=== PATIENT | male | born 1975 | race Caucasian/White ===

== ENCOUNTER 2020-01-06 13:39 | Inpatient (IN) | payer MEDICARE, MEDICAID, SELFPAY ==
[2020-01-06 14:09] VITALS: BP 129/67; PULSE 66; RESP 17; TEMP 36.4; O2SAT 98; BMI 33.0
--- NOTE | 2020-01-06 14:30 | ED_ITS ---
HPI - Psych General Chief Complaint: Psychiatric Symptoms Stated Complaint: Psych Eval Time Seen by Provider: 01/06/20 14:08 Source: patient Mode of arrival: ambulatory Limitations: no limitations History of Present Illness HPI Narrative: Patient presents to ED for depression. Patient was sent by his psychiatrist and therapist for BHS evaluation. Patient states presently no suicidal or homicidal ideations. Patient denies any auditory / visual hallucinations. Patient is depressed because he cannot see his son. Patient states he has never attempted suicide in the past Related Data Home Medications Medication Instructions Recorded Confirmed olanzapine 1 tab PO BEDTIME 01/06/20 01/06/20 sertraline 1 tab PO DAILY 01/06/20 01/06/20 trazodone 1 tab PO BEDTIME PRN 01/06/20 01/06/20 Previous Rx's Medication Instructions Recorded clonazepam 0.5 mg tablet 0.5 mg PO BID #42 tab 12/22/19 Allergies Allergy/AdvReac Type Severity Reaction Status Date / Time No Known Allergies Allergy Unverified 11/26/19 15:12 N.K.D.A Allergy Unknown Uncoded 11/09/19 00:00 Review of Systems Review of Systems: Yes all other systems are reviewed and are negative Eyes: Eyes: Reports as per HPI and Reports no additional eye complaints ENT: Reports system reviewed and no additional complaints, except as documented and Reports as per HPI Cardiovascular: Cardiovascular: Reports as per HPI and Reports no additional cardiovascular complaints Respiratory: Respiratory: Reports as per HPI and Reports no additional respiratory complaints Gastrointestinal: Gastrointestinal: Reports as per HPI and Reports no additional gastrointestinal complaints Musculoskeletal: Musculoskeletal: Reports no additional musculoskeletal co mplaints and Reports as per HPI Neurologic: Reports system reviewed and no additional complaints, except as documented, Reports as per HPI and Denies behavioral changes Psychiatric: Psychiatric: Reports no additional psychiatric complaints, Reports as per HPI, Denies anxiety, Denies behavioral changes, Denies change in appetite, Reports depression, Denies panic attacks, Denies visual hallucinations, Denies homicidal ideation and Denies suicidal ideation [facility]LY [facility] Past Medical History Medical History Hypertension Social History Social History Alcohol intake: unknown Smoking Status: Never smoker Smoked in Last 30 Days: No Use of substances other than those prescribed or required for medical reasons: No Advance Directives: No Advance Directives Information Provided: Yes Physical Exam Vital Signs: Vital Signs: Vital Signs Temp Pulse Resp BP Pulse Ox 01/06/20 16:44 98.3 F 58 142/85 H 98 01/06/20 14:09 97.6 F 66 17 129/67 98 Body Mass Index 33.0 Const: General: cooperative, healthy appearing, comfortable and no acute distress Orientation/consciousness: oriented to person, oriented to place, oriented to time and patient oriented x3 HENMT: Head: Yes normal to inspection and Yes No palpable skull fracture present Eyes: General: appearance normal, both eyes and all related structures Neck: Neck: Yes normal visual inspection, Yes full ROM, Yes no lymphadenopathy, Yes no meningeal signs and Yes trachea midline Chest: Chest palpation & inspection: normal inspection of the chest, normal palpation of entire chest wall and no localized rib tenderness Resp: Effort & Inspection: normal respiratory effort and able to speak in complete sentences Cardio: Jugular venous distension: no JVD Heart sounds: S1 normal heart sound present and S2 normal heart sound present GI: Inspection: Yes normal to inspection Palpation (GI): Soft to palpation, not firm, nontender, no guarding and not rigid Percussion: Yes normal to percussion Auscultation: normal bowel sounds : General: No CVA tenderness and Yes no CVA tenderness Back/Spine/Pelvis: Back: no CVA tenderness, No CVA tenderness and No back tenderness Skin: General skin exam: no rashes or lesions noted Neuro: General: oriented to person, oriented to place, oriented to time, patient oriented x3, gait normal, no meningeal signs and CN's II-XI intact bilaterally Cranial nerves: Yes CN's II-XII intact bilaterally Extrem: General: Yes normal to inspection and Yes full ROM Psych: Other: Patient denies any suicide thoughts Appearance: grossly normal, well kempt and not disheveled Thought content: suicidality, no homicidality, no delusions, no hallucinations and Depressive thoughts present Course Course Course Narrative: patient will have basic labs and will have BHI and evaluation. Reevaluation(s) Reevaluation #1: Spoke with nurse Jennifer who states she was informed by JOSH Luevano that patient was sent to the ED for being psychotic and delusional. Patient awaiting BHN evaluation. Case signed out to KATIA Huber for follow up. patient labs are normal. Time: 18:14 MDM - Psych MDM Narrative Medical decision making narrative: Schizoaffective disorder Restraints Face to Face Assessment: Face to Face Assessment: Current Situation: After assessment of the patient, a review of the pertinent medical record and a discussion with nursing staff, I feel the patient requires a restrain intervention. Reaction To: [] Medical Condition: [] Behavioral State: [] Continued Need: [] Lab Data Result diagrams: 01/06/20 14:46 01/06/20 14:46 Labs: Lab Results 01/06/20 01/06/20 01/06/20 Range/Units 14:13 14:46 14:46 WBC 7.5 (4.8-10.8) X10*3/uL RBC 4.97 (4.60-5.80) X10*6/uL Hgb 14.8 (14.0-18.0) g/dl Hct 43.9 (42-52) % MCV 88.3 (80-98) fL MCH 29.8 (27.0-33.0) pg MCHC 33.7 (31.0-36.0) g/dl RDW 13.2 (11.0-16.0) % Plt Count 224 (160-400) X10*3/uL MPV 10.5 (9.4-12.4) fL Immature Gran % (Auto) 0.4 (0.0-0.4) % Neut % (Auto) 74.2 H (45-73) % Lymph % (Auto) 19.5 L (20-40) % [place] % (Auto) 5.1 (2-11) % Eos % (Auto) 0.4 (0-4) % Baso % (Auto) 0.4 (0-2) % Lymph # (Auto) 1.5 (1.2-4.9) X10*3/uL [place] # (Auto) 0.4 (0.1-1.2) X10*3/uL Eos # (Auto) 0.0 (0.0-0.4) X10*3/uL Baso # (Auto) 0.0 (0.0-0.2) X10*3/uL Abs Immat Gran (auto) 0.03 (0.00-0.03) X10*3/uL Absolute Neuts (auto) 5.6 (2.0-8.3) X10*3/uL Absolute Nucleated RBC 0.000 (0.0-0.012) X10*3/uL Nucleated RBC % (auto) 0.0 (0.0-0.2) /100WBC Sodium 136 (135-145) mmol/L Potassium 5.1 (3.3-5.1) mmol/l Chloride 101 (96-108) mmol/L Carbon Dioxide 28 (22-29) mmol/L Anion Gap 12 (12-20) BUN 11 (9-16) mg/dL Creatinine 0.78 (0.5-1.4) mg/dL Estim Creat Clear Calc 156.1 Estimated GFR > 60 Random Glucose 101 (60-115) mg/dL Calcium 9.6 (8.4-10.2) mg/dL Total Bilirubin 0.4 (0.0-1.0) mg/dL Direct Bilirubin 0.2 (0.0-0.5) mg/dL AST 20 (5-37) U/L ALT 16 (0-40) U/L Alkaline Phosphatase 61 (39-117) U/L Total Protein 6.9 (6.5-8.0) g/dL Albumin 4.3 (3.5-5.0) g/dL Urine Opiates Screen POSITIVE H (Not Detect) Ur Barbiturates Screen Not Detected (Not Detect) Ur Phencyclidine Scrn Not Detected (Not Detect) Ur Amphetamines Screen Not Detected (Not Detect) U Benzodiazepines Scrn Not Detected (Not Detect) Urine Cocaine Screen Not Detected (Not Detect) U Marijuana (THC) Screen POSITIVE H (Not Detect) Ethyl Alcohol mg/dL 01/06/20 Range/Units 14:46 WBC (4.8-10.8) X10*3/uL RBC (4.60-5.80) X10*6/uL Hgb (14.0-18.0) g/dl Hct (42-52) % MCV (80-98) fL MCH (27.0-33.0) pg MCHC (31.0-36.0) g/dl RDW (11.0-16.0) % Plt Count (160-400) X10*3/uL MPV (9.4-12.4) fL Immature Gran % (Auto) (0.0-0.4) % Neut % (Auto) (45-73) % Lymph % (Auto) (20-40) % [place] % (Auto) (2-11) % Eos % (Auto) (0-4) % Baso % (Auto) (0-2) % Lymph # (Auto) (1.2-4.9) X10*3/uL [place] # (Auto) (0.1-1.2) X10*3/uL Eos # (Auto) (0.0-0.4) X10*3/uL Baso # (Auto) (0.0-0.2) X10*3/uL Abs Immat Gran (auto) (0.00-0.03) X10*3/uL Absolute Neuts (auto) (2.0-8.3) X10*3/uL Absolute Nucleated RBC (0.0-0.012) X10*3/uL Nucleated RBC % (auto) (0.0-0.2) /100WBC Sodium (135-145) mmol/L Potassium (3.3-5.1) mmol/l Chloride (96-108) mmol/L Carbon Dioxide (22-29) mmol/L Anion Gap (12-20) BUN (9-16) mg/dL Creatinine (0.5-1.4) mg/dL Estim Creat Clear Calc Estimated GFR Random Glucose (60-115) mg/dL Calcium (8.4-10.2) mg/dL Total Bilirubin (0.0-1.0) mg/dL Direct Bilirubin (0.0-0.5) mg/dL AST (5-37) U/L ALT (0-40) U/L Alkaline Phosphatase (39-117) U/L Total Protein (6.5-8.0) g/dL Albumin (3.5-5.0) g/dL Urine Opiates Screen (Not Detect) Ur Barbiturates Screen (Not Detect) Ur Phencyclidine Scrn (Not Detect) Ur Amphetamines Screen (Not Detect) U Benzodiazepines Scrn (Not Detect) Urine Cocaine Screen (Not Detect) U Marijuana (THC) Screen (Not Detect) Ethyl Alcohol < 10 mg/dL Discharge Plan Discharge Clinical Impression: Schizoaffective disorder Prescriptions: No Action clonazepam [Klonopin] 0.5 mg tablet 0.5 mg PO BID Qty: 42 RF: 1 olanzapine 5 mg tablet 1 tab PO BEDTIME RF: 0 sertraline 50 mg tablet 1 tab PO DAILY RF: 0 trazodone 100 mg tablet 1 tab PO BEDTIME PRN (Reason: insomnia) RF: 0
[2020-01-06 14:47] LABS: Amphetamine Screen Urine Not Detected (Not Detect); Barbiturates, Urine Not Detected (Not Detect); Benzodiazepines Screen Urine Not Detected (Not Detect); Cannabinoid Screen Urine POSITIVE (Not Detect); Cocaine Screen Urine Not Detected (Not Detect); Opiate Screen Urine POSITIVE (Not Detect); Phencyclidine Screen Urine Not Detected (Not Detect)
[2020-01-06 14:52] LABS: MANUAL DIFF FLAG NO
[2020-01-06 14:55] LABS: Basophils Percent Auto 0.4 % (0-2); Eosinophils Percent Auto 0.4 % (0-4); Hematocrit 43.9 % (42-52); Hemoglobin 14.8 g/dl (14.0-18.0); Imm Gran Abs Auto 0.03 X10*3/uL (0.00-0.03); Imm Gran Pct Auto 0.4 % (0.0-0.4); Lymphocytes Absolute Auto 1.5 X10*3/uL (1.2-4.9); Lymphocytes Percent Auto 19.5 % (20-40); Mean Corpuscular HGB Conc 33.7 g/dl (31.0-36.0); Mean Corpuscular Hemoglobin 29.8 pg (27.0-33.0); Mean Corpuscular Volume 88.3 fL (80-98); Mean Platelet Volume 10.5 fL (9.4-12.4); Monocytes Absolute Auto 0.4 X10*3/uL (0.1-1.2); Monocytes Percent Auto 5.1 % (2-11); Neutrophils Absolute Auto 5.6 X10*3/uL (2.0-8.3); Neutrophils Percent Auto 74.2 % (45-73); Platelet Count 224 X10*3/uL (160-400); Red Blood Count 4.97 X10*6/uL (4.60-5.80); Red Cell Distribution Width 13.2 % (11.0-16.0); White Blood Count 7.5 X10*3/uL (4.8-10.8)
[2020-01-06 15:22] LABS: Ethanol < 10 mg/dL
[2020-01-06 15:25] LABS: Alanine Aminotransferase 16 U/L (0-40); Albumin Level 4.3 g/dL (3.5-5.0); Alkaline Phosphatase 61 U/L (39-117); Anion Gap 12 (12-20); Aspartate Amino Transferase 20 U/L (5-37); Bilirubin Direct 0.2 mg/dL (0.0-0.5); Bilirubin Total 0.4 mg/dL (0.0-1.0); Blood Urea Nitrogen 11 mg/dL (9-16); Calcium 9.6 mg/dL (8.4-10.2); Carbon Dioxide 28 mmol/L (22-29); Chloride 101 mmol/L (96-108); Creatinine Clr Calc Pharmacy 156.1; Estimated Glomerular Filt Rate > 60; Glucose Random 101 mg/dL (60-115); Potassium 5.1 mmol/l (3.3-5.1); Sodium 136 mmol/L (135-145); Total Protein 6.9 g/dL (6.5-8.0)
--- NOTE | 2020-01-06 15:51 | PC.NURSE ---
[facility] faxed and called.
[2020-01-06 16:44] VITALS: BP 142/85; PULSE 58; TEMP 36.8; O2SAT 98
--- NOTE | 2020-01-06 20:14 | PC.NURSE ---
Report received. PT is sleeping in bed. Breathing is even and unlabored. Inpatient bed search in progress.
[2020-01-06 22:05] VITALS: BP 133/83; PULSE 60; RESP 18; TEMP 36.3; O2SAT 98
--- NOTE | 2020-01-06 23:39 | PC.NURSE ---
Care Team called and stated that there was an issue with the computer system at [facility] and therefore could not access the evaluation forms for this individual at this time. This will delay the PT's transfer up to M5 tonight as was the previous plan.
[2020-01-07 01:08] LABS: SARS COV2 PCR INHOUSE NEGATIVE (Negative)
[2020-01-07 01:32] VITALS: BP 126/80; PULSE 58; RESP 17; TEMP 36.9; O2SAT 98
[2020-01-07] MEDS: Ibuprofen 800 MG TABLET PO (01:46)
--- NOTE | 2020-01-07 02:30 | PC.NURSE ---
Nurse to nurse completed with M5.
[2020-01-07 05:20] VITALS: BP 135/95; PULSE 69; RESP 18; TEMP 36.2; O2SAT 98
--- NOTE | 2020-01-07 05:53 | PC.ADMIT ---
patient is 44 year-old male self presented to [facility]- ED according advise from this thepariest/psychiatrist for increase depression, suicidal thoughts and as well as paranoia thoughts. Patient reports that increase stress lately and he was struggle to come in for help at about a year. Patient denies SI/ HI/AH/AV on admission, stated that he has suicidal thought and wish he was but he scared just think about it and I have 11 year old-son that I want to see . Patient denies any plan or intention as well. He reports that he was here on M5 in the past x1 around [id number] and had ECT while being admitted here but I do not like it much and that was the only psychiatric inpatient admitted. Patient was pleasant, calm, cooprative. Singed CV, signed all legal paper. Patient arrived on the unit by 0515 on 01/07/20 and is placed on 15 min checks for own safety. [id number], DOC -Nurse reports were done. Home meds were verified through [facility] and DOC was to continue. Patient reports taking meds at home consistently. A&Ox4. Oriented patient to unit and unit's protocol. Patient is currenty in bed try to catch up with some sleep that he missed during the right.
[2020-01-07 07:05] VITALS: BMI 29.8
[2020-01-07] MEDS: Sertraline HCL 50 MG TABLET 75 MG PO (09:12)
[2020-01-07] MEDS: clonazePAM 1 MG TABLET PO (09:12)
--- NOTE | 2020-01-07 09:19 | P.HPPS_ITS ---
HPI Chief Complaint: Psychosis Sources of Information: patient interviewed, chart reviewed and crisis/core team assessment reviewed HPI Narrative: Patient is a 44 year old male who was referred by [facility] crisis due to an increase in depression and psychosis. He has been in treatment with Jessica Luevano for several months, and has been on a combination of zyprexa and sertraline. Zyprexa has been helping with the depression but the patient has been increasingly depressed. Stresses include that he does not see his son who is in the mother's custody, and he has an ongoing conflict with his neighbors that seems to be rooted in psychosis and paranoia. The patient has been sleeping very little, has racing thoughts and has been quite withdrawn. Upon arrival to the unit he stated he felt safe but was anxious that he would be forced to have ECT and he does not want that. Past Psychiatric History: Inpatient admissions: 1 documented admission for over a month with ECT treatment here at [facility] in 2010. He denies any other psychiatric admissions. He feels ECT was harmful to him. Outpatient providers: Outpatient therapist at [facility] in [place]. Currently seeing them weekly Medication trials: Per documentation in [facility] [employer], in 2010 at time of discharge from, he was on Depakote, Abilify, Klonopin, Benadryl, trazodone, and Paxil. He also had a trial of seroquel with his PCP but he did not Medical Evaluation Reviewed: Yes Medically clear for admission [facility], [facility] Medical History Hypertension Family History: Mother ? alcohol abuse Social History: after a long marriage Lives with his mother Does not work Substance History: Denies Trauma History: Unknown Diagnostics Vital Signs (24Hr): Vital Signs - 24 hr 01/06/20 14:09 01/06/20 16:44 01/06/20 22:05 Temperature 97.6 F 98.3 F 97.4 F Pulse Rate 66 58 60 Respiratory Rate 17 18 Blood Pressure 129/67 142/85 H 133/83 Pulse Oximetry 98 98 98 01/07/20 01:32 01/07/20 05:20 Temperature 98.4 F 97.2 F Pulse Rate 58 69 Respiratory Rate 17 18 Blood Pressure 126/80 135/95 H Pulse Oximetry 98 98 Body Mass Index 29.8 Labs Results: 01/06/20 14:46 01/06/20 14:46 Labs: Laboratory Results - last 48 hr 01/06/20 01/06/20 01/06/20 14:13 14:46 14:46 WBC 7.5 RBC 4.97 Hgb 14.8 Hct 43.9 MCV 88.3 MCH 29.8 MCHC 33.7 RDW 13.2 Plt Count 224 MPV 10.5 Immature Gran % (Auto) 0.4 Neut % (Auto) 74.2 H Lymph % (Auto) 19.5 L [place] % (Auto) 5.1 Eos % (Auto) 0.4 Baso % (Auto) 0.4 Lymph # (Auto) 1.5 [place] # (Auto) 0.4 Eos # (Auto) 0.0 Baso # (Auto) 0.0 Abs Immat Gran (auto) 0.03 Absolute Neuts (auto) 5.6 Absolute Nucleated RBC 0.000 Nucleated RBC % (auto) 0.0 Sodium 136 Potassium 5.1 Chloride 101 Carbon Dioxide 28 Anion Gap 12 BUN 11 Creatinine 0.78 Estim Creat Clear Calc 156.1 Estimated GFR > 60 Random Glucose 101 Calcium 9.6 Total Bilirubin 0.4 Direct Bilirubin 0.2 AST 20 ALT 16 Alkaline Phosphatase 61 Total Protein 6.9 Albumin 4.3 Urine Opiates Screen POSITIVE H Ur Barbiturates Screen Not Detected Ur Phencyclidine Scrn Not Detected Ur Amphetamines Screen Not Detected U Benzodiazepines Scrn Not Detected Urine Cocaine Screen Not Detected U Marijuana (THC) Screen POSITIVE H Ethyl Alcohol Coronavirus (PCR) 01/06/20 01/06/20 14:46 23:51 WBC RBC Hgb Hct MCV MCH MCHC RDW Plt Count MPV Immature Gran % (Auto) Neut % (Auto) Lymph % (Auto) [place] % (Auto) Eos % (Auto) Baso % (Auto) Lymph # (Auto) [place] # (Auto) Eos # (Auto) Baso # (Auto) Abs Immat Gran (auto) Absolute Neuts (auto) Absolute Nucleated RBC Nucleated RBC % (auto) Sodium Potassium Chloride Carbon Dioxide Anion Gap BUN Creatinine Estim Creat Clear Calc Estimated GFR Random Glucose Calcium Total Bilirubin Direct Bilirubin AST ALT Alkaline Phosphatase Total Protein Albumin Urine Opiates Screen Ur Barbiturates Screen Ur Phencyclidine Scrn Ur Amphetamines Screen U Benzodiazepines Scrn Urine Cocaine Screen U Marijuana (THC) Screen Ethyl Alcohol < 10 Coronavirus (PCR) NEGATIVE Meds/Allergies Meds Home Medications Medication Instructions Recorded Confirmed Type olanzapine 1 tab PO BEDTIME 01/06/20 01/06/20 History sertraline 1 tab PO DAILY 01/06/20 01/06/20 History trazodone 1 tab PO BEDTIME PRN 01/06/20 01/06/20 History Allergies Allergies Allergy/AdvReac Type Severity Reaction Status Date / Time No Known Allergies Allergy Unverified 11/26/19 15:12 N.K.D.A Allergy Unknown Uncoded 11/09/19 00:00 Mental Status Exam Mental Status Exam Patient Appearance: Well Grooomed Patient Orientation: Person, Place, Time and Situation Level of Consciousness: Awake and Appropriate Patient Behavior: Appropriate Mood Description: Suspicious, Anxious, Blunted, Sad and Nervous Affect Description: Suspicious, Withdrawn, Anxious and Sad Ability to Follow Directions: Fair Speech Pattern: Spontaneous Speech Memory Description: Intact Hallucinations: Auditory (Unclear - denies) Delusions: Paranoid Ideation and Ideas of Reference Thought Process: Racing, Goal Oriented and Slowed Thinking Thought Content: positive for Obsessional Thoughts, positive for Perseveration, positive for Preoccupation, negative for Suicidal Ideation and negative for Homicidal Ideation Depressive Symptoms: Increased Irritability, Difficulty Sleeping, Feelings of Worthlessness, Feelings of Guilt, Increased Fatigue and Thoughts of /Suicide Judgement: Fair Assessment & Plan Assessment & Plan (1) Schizoaffective disorder: Status: Acute Qualifiers: Schizoaffective disorder type: bipolar Qualified Code(s): F25.0 - Schizoaffective disorder, bipolar type Code(s): F25.9 - Schizoaffective disorder, unspecified Assessment and Plan: CV, 15 Collect collateral history Consider Li ELS 7-10 days Patient educated on: diagnosis and medication risk/benefits Informed Consent: further education needed Reason for continued inpatient stay Substantial Risk for: inability to function and rapid decompensation
[2020-01-07 17:37] VITALS: BP 127/72; PULSE 64; TEMP 36.8
[2020-01-07] MEDS: traZODone HCL 100 MG TABLET PO (20:47)
[2020-01-07] MEDS: clonazePAM 0.5 MG TABLET PO (20:47)
[2020-01-07] MEDS: OLANZapine 5 MG TABLET 7.5 MG PO (20:47)
[2020-01-07] MEDS: hydrOXYzine HCL 25 MG TABLET PO (20:48)
[2020-01-08] MEDS: Acetaminophen 325 MG TABLET 650 MG PO (04:29)
[2020-01-08 04:30] VITALS: BP 125/80; PULSE 84; RESP 16; TEMP 36.6; O2SAT 97
[2020-01-08] MEDS: Sertraline HCL 50 MG TABLET 75 MG PO (09:11)
--- NOTE | 2020-01-08 09:12 | HO.PSYCHPN ---
Subjective Subjective Date of Service: 01/08/20 Reason For Visit: Psychosis Interim History: Dave remains with racing thoughts and a severe depression. He does not feel that he has been helped with his current treatment regime. We agreed to Risperdal and [place] He is anxious and will increase clonazepam Medication Compliance: Yes Side effects from medications: No Review of Systems Acute medical concerns: No Medical Review of Systems: unchanged Review of Systems Reports system reviewed and no additional complaints, except as documented, Reports as per HPI and Denies behavioral changes Psychiatric: Denies behavioral changes Mental Status Exam Mental Status Exam Patient Appearance: Well Grooomed Patient Orientation: Person, Place, Time and Situation Level of Consciousness: Awake and Appropriate Patient Behavior: Appropriate Mood Description: Suspicious, Anxious, Blunted, Sad and Nervous Affect Description: Suspicious, Withdrawn, Anxious and Sad Ability to Follow Directions: Fair Speech Pattern: Spontaneous Speech Memory Description: Intact Hallucinations: Auditory (Unclear - denies) Delusions: Paranoid Ideation and Ideas of Reference Thought Process: Racing, Goal Oriented and Slowed Thinking Thought Content: positive for Obsessional Thoughts, positive for Perseveration, positive for Preoccupation, negative for Suicidal Ideation and negative for Homicidal Ideation Depressive Symptoms: Increased Irritability, Difficulty Sleeping, Feelings of Worthlessness, Feelings of Guilt, Increased Fatigue and Thoughts of /Suicide Judgement: Fair Diagnostics Vital Signs (24Hr): Vital Signs - 24 hr 01/07/20 17:37 01/08/20 04:30 Temperature 98.2 F 98 F Pulse Rate 64 84 Respiratory Rate 16 Blood Pressure 127/72 125/80 Pulse Oximetry 97 Body Mass Index 29.8 Labs Results: 01/06/20 14:46 01/06/20 14:46 Labs: Laboratory Results - last 48 hr 01/06/20 01/06/20 01/06/20 14:13 14:46 14:46 WBC 7.5 RBC 4.97 Hgb 14.8 Hct 43.9 MCV 88.3 MCH 29.8 MCHC 33.7 RDW 13.2 Plt Count 224 MPV 10.5 Immature Gran % (Auto) 0.4 Neut % (Auto) 74.2 H Lymph % (Auto) 19.5 L [place] % (Auto) 5.1 Eos % (Auto) 0.4 Baso % (Auto) 0.4 Lymph # (Auto) 1.5 [place] # (Auto) 0.4 Eos # (Auto) 0.0 Baso # (Auto) 0.0 Abs Immat Gran (auto) 0.03 Absolute Neuts (auto) 5.6 Absolute Nucleated RBC 0.000 Nucleated RBC % (auto) 0.0 Sodium 136 Potassium 5.1 Chloride 101 Carbon Dioxide 28 Anion Gap 12 BUN 11 Creatinine 0.78 Estim Creat Clear Calc 156.1 Estimated GFR > 60 Random Glucose 101 Calcium 9.6 Total Bilirubin 0.4 Direct Bilirubin 0.2 AST 20 ALT 16 Alkaline Phosphatase 61 Total Protein 6.9 Albumin 4.3 Urine Opiates Screen POSITIVE H Ur Barbiturates Screen Not Detected Ur Phencyclidine Scrn Not Detected Ur Amphetamines Screen Not Detected U Benzodiazepines Scrn Not Detected Urine Cocaine Screen Not Detected U Marijuana (THC) Screen POSITIVE H Ethyl Alcohol Coronavirus (PCR) 01/06/20 01/06/20 14:46 23:51 WBC RBC Hgb Hct MCV MCH MCHC RDW Plt Count MPV Immature Gran % (Auto) Neut % (Auto) Lymph % (Auto) [place] % (Auto) Eos % (Auto) Baso % (Auto) Lymph # (Auto) [place] # (Auto) Eos # (Auto) Baso # (Auto) Abs Immat Gran (auto) Absolute Neuts (auto) Absolute Nucleated RBC Nucleated RBC % (auto) Sodium Potassium Chloride Carbon Dioxide Anion Gap BUN Creatinine Estim Creat Clear Calc Estimated GFR Random Glucose Calcium Total Bilirubin Direct Bilirubin AST ALT Alkaline Phosphatase Total Protein Albumin Urine Opiates Screen Ur Barbiturates Screen Ur Phencyclidine Scrn Ur Amphetamines Screen U Benzodiazepines Scrn Urine Cocaine Screen U Marijuana (THC) Screen Ethyl Alcohol < 10 Coronavirus (PCR) NEGATIVE Medications Medications Current Medications Generic Name Dose Route Start Last Admin Trade Name Freq PRN Reason Stop Dose Admin Acetaminophen 650 mg 01/07/20 04:58 01/08/20 04:29 Acetaminophen 325 Mg Tablet PO 650 mg Q6H PRN Administration Headache/Pain Mild Scale (1-3) Al Hydroxide/Mg Hydroxide 30 ml 01/07/20 04:58 Magnesium Hydrox/Alum Hydrox 30 Ml Oral.Susp PO Q6H PRN Heartburn/Nausea Clonazepam 0.5 mg 01/07/20 21:00 01/07/20 20:47 Clonazepam 0.5 Mg Tablet PO 0.5 mg BEDTIME CONNER Administration Clonazepam 1 mg 01/08/20 09:00 Clonazepam 1 Mg Tablet PO DAILY CONNER Hydroxyzine HCl 25 mg 01/07/20 04:58 01/07/20 20:48 Hydroxyzine Hcl 25 Mg Tablet PO 25 mg BEDTIME PRN Administration Anxiety Magnesium Hydroxide 30 ml 01/07/20 04:58 Milk Of Magnesia 30 Ml Oral.Susp PO DAILY PRN Constipation Nicotine Polacrilex 2 mg 01/07/20 04:28 Nicotine Polacrilex 2 Mg Gum BUCCAL Q2H PRN Nicotine Cravings Olanzapine 7.5 mg 01/07/20 21:00 01/07/20 20:47 Olanzapine 5 Mg Tablet PO 7.5 mg BEDTIME CONNER Administration Sertraline HCl 75 mg 01/07/20 09:00 01/07/20 09:12 Sertraline Hcl 50 Mg Tablet PO 75 mg DAILY CONNER Administration Trazodone HCl 100 mg 01/06/20 21:46 01/07/20 20:47 Trazodone Hcl 100 Mg Tablet PO 100 mg BEDTIME PRN Administration insomnia Allergies Allergies Allergy/AdvReac Type Severity Reaction Status Date / Time No Known Allergies Allergy Unverified 11/26/19 15:12 N.K.D.A Allergy Unknown Uncoded 11/09/19 00:00 Assessment & Plan Assessment & Plan (1) Schizoaffective disorder: Qualifiers: Schizoaffective disorder type: bipolar Qualified Code(s): F25.0 - Schizoaffective disorder, bipolar type Status: Acute Code(s): F25.9 - Schizoaffective disorder, unspecified Assessment and Plan: Change to Li and risperdal Monitor response Greater than 50% of the session was spent on counseling and/or coordination of care Patient educated on: diagnosis and medication risk/benefits Informed Consent: further education needed Reason for contiued inpatient stay Substantial Risk for: harm to self, inability to function and rapid decompensation
[2020-01-08] MEDS: clonazePAM 1 MG TABLET PO ×3 (09:13→21:50)
[2020-01-08] MEDS: Ibuprofen 600 MG TABLET PO (11:38)
[2020-01-08] MEDS: Nicotine Polacrilex 2 MG GUM BUCCAL ×4 (11:39→20:18)
[2020-01-08] MEDS: risperiDONE 1 MG TABLET PO ×2 (14:44→21:50)
[2020-01-08] MEDS: Lithium Carbonate 300 MG CAPSULE PO ×2 (14:44→21:50)
[2020-01-08 18:00] VITALS: BP 135/87; PULSE 88; TEMP 37.4
[2020-01-08] MEDS: traZODone HCL 100 MG TABLET PO (21:50)
[2020-01-08] MEDS: hydrOXYzine HCL 25 MG TABLET PO (23:10)
[2020-01-09 06:00] VITALS: BP 127/80; PULSE 92; RESP 18; TEMP 36.5
[2020-01-09] MEDS: Nicotine Polacrilex 2 MG GUM BUCCAL ×4 (07:19→18:51)
[2020-01-09] MEDS: Lithium Carbonate 300 MG CAPSULE PO ×2 (08:52→21:38)
[2020-01-09] MEDS: Sertraline HCL 50 MG TABLET 75 MG PO (08:53)
[2020-01-09] MEDS: risperiDONE 1 MG TABLET PO (08:53)
[2020-01-09] MEDS: clonazePAM 1 MG TABLET PO ×3 (08:53→21:37)
[2020-01-09] MEDS: Acetaminophen 325 MG TABLET 650 MG PO (09:06)
--- NOTE | 2020-01-09 10:48 | HO.PSYCHPN ---
Subjective Subjective Reason For Visit: Psychosis Review of Systems Constitutional: Reports fatigue Reports system reviewed and no additional complaints, except as documented, Reports as per HPI and Denies behavioral changes Comments: no sedation Psychiatric: Denies behavioral changes Endocrine: Reports cold intolerance and Reports fatigue Mental Status Exam Mental Status Exam Patient Appearance: Fatigued and Appropriate Patient Orientation: Person, Place and Time Level of Consciousness: Awake Patient Behavior: Appropriate Mood Description: Calm and Depressed Patient Cognition Impaired: No Ability to Follow Directions: Good Speech Pattern: Clear Hallucinations: None Delusions: Not Present (denies) Thought Process: Intact Thought Content: positive for Intact, positive for Goal Oriented and positive for Suicidal Ideation (denies si/hi) Depressive Symptoms: Increased Anxiety, Insomnia (reports not sleeping for last 5 days despite trazodone risperidone and clonazepam) and Difficulty Sleeping Judgement: Fair Diagnostics Vital Signs (24Hr): Vital Signs - 24 hr 01/08/20 18:00 01/09/20 06:00 Temperature 99.3 F 97.7 F Pulse Rate 88 92 Respiratory Rate 18 Blood Pressure 135/87 127/80 Body Mass Index 29.8 Labs Results: 01/06/20 14:46 01/06/20 14:46 Medications Medications Current Medications Generic Name Dose Route Start Last Admin Trade Name Freq PRN Reason Stop Dose Admin Acetaminophen 650 mg 01/07/20 04:58 01/09/20 09:06 Acetaminophen 325 Mg Tablet PO 650 mg Q6H PRN Administration Headache/Pain Mild Scale (1-3) Al Hydroxide/Mg Hydroxide 30 ml 01/07/20 04:58 Magnesium Hydrox/Alum Hydrox 30 Ml Oral.Susp PO Q6H PRN Heartburn/Nausea Clonazepam 1 mg 01/08/20 15:00 01/09/20 08:53 Clonazepam 1 Mg Tablet PO 1 mg TID CONNER Administration Hydroxyzine HCl 25 mg 01/07/20 04:58 01/08/20 23:10 Hydroxyzine Hcl 25 Mg Tablet PO 25 mg BEDTIME PRN Administration Anxiety Ibuprofen 600 mg 01/08/20 09:13 01/08/20 11:38 Ibuprofen 600 Mg Tablet PO 600 mg Q6H PRN Administration Pain, Moderate (Pain Scale 4-6 [place] Carbonate 300 mg 01/08/20 14:00 01/09/20 08:52 [place] Carbonate 300 Mg Capsule PO 300 mg BID CONNER Administration Magnesium Hydroxide 30 ml 01/07/20 04:58 Milk Of Magnesia 30 Ml Oral.Susp PO DAILY PRN Constipation Nicotine Polacrilex 2 mg 01/07/20 04:28 01/09/20 07:19 Nicotine Polacrilex 2 Mg Gum BUCCAL 2 mg Q2H PRN Administration Nicotine Cravings Risperidone 1 mg 01/08/20 14:05 01/09/20 08:53 Risperidone 1 Mg Tablet PO changing this to 2mg at bed today 1 mg BID CONNER Administration Sertraline HCl 75 mg 01/07/20 09:00 01/09/20 08:53 Sertraline Hcl 50 Mg Tablet PO 75 mg DAILY CONNER Administration Trazodone HCl 100 mg increase to 150mg 01/06/20 21:46 01/08/20 21:50 Trazodone Hcl 100 Mg Tablet PO 100 mg BEDTIME PRN Administration insomnia Allergies Allergies Allergy/AdvReac Type Severity Reaction Status Date / Time No Known Allergies Allergy Unverified 11/26/19 15:12 N.K.D.A Allergy Unknown Uncoded 11/09/19 00:00 Assessment & Plan Assessment & Plan (1) Schizoaffective disorder: Qualifiers: Schizoaffective disorder type: bipolar Qualified Code(s): F25.0 - Schizoaffective disorder, bipolar type Status: Acute Code(s): F25.9 - Schizoaffective disorder, unspecified Greater than 50% of the session was spent on counseling and/or coordination of care Patient educated on: diagnosis and medication risk/benefits Informed Consent: understands Reason for contiued inpatient stay Substantial Risk for: harm to self and inability to function
[2020-01-09 16:05] VITALS: BP 124/84; PULSE 97; RESP 18; TEMP 36.8
[2020-01-09] MEDS: traZODone HCL 50 MG TABLET 150 MG PO (21:37)
[2020-01-09] MEDS: risperiDONE 0.5 MG TABLET 2 MG PO (21:37)
[2020-01-09] MEDS: hydrOXYzine HCL 25 MG TABLET 50 MG PO (21:38)
[2020-01-10] MEDS: Acetaminophen 325 MG TABLET 650 MG PO ×2 (03:18→09:44)
[2020-01-10 06:05] VITALS: BP 130/80; PULSE 87; RESP 16; TEMP 36.5; O2SAT 97
[2020-01-10] MEDS: clonazePAM 1 MG TABLET PO ×3 (08:44→22:04)
[2020-01-10] MEDS: Sertraline HCL 50 MG TABLET 75 MG PO (08:44)
[2020-01-10] MEDS: Lithium Carbonate 300 MG CAPSULE PO ×2 (08:44→22:04)
[2020-01-10] MEDS: Nicotine Polacrilex 2 MG GUM BUCCAL ×6 (09:12→22:02)
--- NOTE | 2020-01-10 10:35 | HO.PSYCHPN ---
Subjective Subjective Date of Service: 01/10/20 Reason For Visit: Psychosis Subjective Notes: Conditional Voluntary Interim History: Pt reports sleeping a few hours which was better than other days continues to feel depressed/anxious Medication Compliance: Yes Side effects from medications: No Attending Groups: Intermittent Review of Systems Review of Systems Yes all other systems are reviewed and are negative Reports system reviewed and no additional complaints, except as documented, Reports as per HPI and Denies behavioral changes Psychiatric: Denies behavioral changes Mental Status Exam Mental Status Exam Narrative: dressed appropriately and wearing mask correctly Patient Appearance: Well Grooomed Patient Orientation: Person, Place, Time and Situation Level of Consciousness: Awake and Appropriate Patient Behavior: Appropriate Mood Description: Calm, Depressed and Anxious Affect Description: Calm and Blunted Patient Cognition Impaired: No Ability to Follow Directions: Good Speech Pattern: Clear Hallucinations: None Thought Process: Intact Thought Content: positive for Goal Oriented Depressive Symptoms: Increased Anxiety and Difficulty Sleeping Judgement: Fair Diagnostics Vital Signs (24Hr): Vital Signs - 24 hr 01/09/20 16:05 01/10/20 06:05 Temperature 98.2 F 97.7 F Pulse Rate 97 87 Respiratory Rate 18 16 Blood Pressure 124/84 130/80 Pulse Oximetry 97 Body Mass Index 29.8 Labs Results: 01/06/20 14:46 01/06/20 14:46 Medications Medications Current Medications Generic Name Dose Route Start Last Admin Trade Name Freq PRN Reason Stop Dose Admin Acetaminophen 650 mg 01/07/20 04:58 01/10/20 09:44 Acetaminophen 325 Mg Tablet PO 650 mg Q6H PRN Administration Headache/Pain Mild Scale (1-3) Al Hydroxide/Mg Hydroxide 30 ml 01/07/20 04:58 Magnesium Hydrox/Alum Hydrox 30 Ml Oral.Susp PO Q6H PRN Heartburn/Nausea Clonazepam 1 mg 01/08/20 15:00 01/10/20 08:44 Clonazepam 1 Mg Tablet PO 1 mg TID CONNER Administration Hydroxyzine HCl 50 mg 01/09/20 17:22 01/09/20 21:38 Hydroxyzine Hcl 25 Mg Tablet PO 50 mg BEDTIME PRN Administration Anxiety [place] Carbonate 300 mg 01/08/20 14:00 01/10/20 08:44 [place] Carbonate 300 Mg Capsule PO 300 mg BID CONNER Administration Magnesium Hydroxide 30 ml 01/07/20 04:58 Milk Of Magnesia 30 Ml Oral.Susp PO DAILY PRN Constipation Nicotine Polacrilex 2 mg 01/07/20 04:28 01/10/20 09:12 Nicotine Polacrilex 2 Mg Gum BUCCAL 2 mg Q2H PRN Administration Nicotine Cravings Risperidone 2 mg 01/09/20 21:00 01/09/20 21:37 Risperidone 0.5 Mg Tablet PO 2 mg BEDTIME CONNER Administration Sertraline HCl 75 mg 01/07/20 09:00 01/10/20 08:44 Sertraline Hcl 50 Mg Tablet PO 75 mg DAILY CONNER Administration Trazodone HCl 150 mg 01/09/20 13:57 01/09/20 21:37 Trazodone Hcl 50 Mg Tablet PO 150 mg BEDTIME PRN Administration insomnia Allergies Allergies Allergy/AdvReac Type Severity Reaction Status Date / Time No Known Allergies Allergy Unverified 11/26/19 15:12 N.K.D.A Allergy Unknown Uncoded 11/09/19 00:00 Assessment & Plan Assessment & Plan (1) Schizoaffective disorder: Qualifiers: Schizoaffective disorder type: bipolar Qualified Code(s): F25.0 - Schizoaffective disorder, bipolar type Status: Acute Code(s): F25.9 - Schizoaffective disorder, unspecified Assessment and Plan: tolerating inc medications struggling with mileu of other ill pts on unit , and disrupted sleep by roommate Greater than 50% of the session was spent on counseling and/or coordination of care
[2020-01-10 18:00] VITALS: BP 131/98; PULSE 88; RESP 18; TEMP 37.2
[2020-01-10] MEDS: traZODone HCL 50 MG TABLET 150 MG PO (22:02)
[2020-01-10] MEDS: risperiDONE 0.5 MG TABLET 2 MG PO (22:03)
[2020-01-10] MEDS: hydrOXYzine HCL 25 MG TABLET 50 MG PO (22:04)
[2020-01-11] MEDS: Nicotine Polacrilex 2 MG GUM BUCCAL ×7 (04:51→23:39)
[2020-01-11 04:52] VITALS: BP 134/77; PULSE 97; TEMP 36.3
[2020-01-11 05:55] VITALS: BP 141/84; PULSE 73; RESP 16; TEMP 36.8
[2020-01-11] MEDS: Acetaminophen 325 MG TABLET 650 MG PO ×2 (06:32→19:37)
--- NOTE | 2020-01-11 07:06 | PM.DS ---
DS: Providers Provider Date of admission: 01/07/20 04:30 Primary care physician: Barb Fry NP DS: Diagnosis Discharge Diagnosis (1) Schizoaffective disorder: Status: Acute DS: Summary Time Spent with Patient Time attestation: Total time spent providing and/or coordinating discharge services: Physical Exam Vital Signs: Vital Signs: Vital Signs Temp Pulse Resp BP 01/11/20 05:55 98.2 F 73 16 141/84 H 01/11/20 04:52 97.4 F 97 134/77 01/10/20 18:00 99.0 F 88 18 131/98 H Body Mass Index 29.8 Discharge Plan Discharge Referrals: Barb Fry NP [Primary Care Provider] - Discharge Medications: No Action clonazepam [Klonopin] 0.5 mg tablet 0.5 mg PO BID Qty: 42 RF: 1 olanzapine 5 mg tablet 1 tab PO BEDTIME RF: 0 sertraline 50 mg tablet 1 tab PO DAILY RF: 0 trazodone 100 mg tablet 1 tab PO BEDTIME PRN (Reason: insomnia) RF: 0
--- NOTE | 2020-01-11 07:43 | HO.PSYCHPN ---
Subjective Subjective Date of Service: 01/11/20 Reason For Visit: Psychosis Subjective Notes: Conditional Voluntary Interim History: Pt reports sleeping a few hours which was better than other days, but he is still not getting sufficient rest. We agreed to increase trazodone and risperdal. He has no SI He ontinues to feel depressed/anxious. He reports that this is a particularly hard day for him since his son's 11th birthday is tomorrow and he has not seen him for 8 months. He is tolerating the medication changes. Medication Compliance: Yes Side effects from medications: No Attending Groups: Intermittent Review of Systems Acute medical concerns: No Medical Review of Systems: unchanged Review of Systems Reports system reviewed and no additional complaints, except as documented, Reports as per HPI and Denies behavioral changes Psychiatric: Denies behavioral changes Mental Status Exam Mental Status Exam Narrative: dressed appropriately and wearing mask correctly Patient Appearance: Well Grooomed Patient Orientation: Person, Place, Time and Situation Level of Consciousness: Awake and Appropriate Patient Behavior: Appropriate and Good Eye Contact Mood Description: Calm, Depressed and Anxious Affect Description: Calm and Blunted Patient Cognition Impaired: No Ability to Follow Directions: Good Speech Pattern: Clear, Spontaneous Speech and Soft-Spoken Memory Description: Intact Hallucinations: None Delusions: Not Present Thought Process: Intact Thought Content: positive for Goal Oriented, positive for Perseveration, negative for Suicidal Ideation and negative for Homicidal Ideation Depressive Symptoms: Increased Anxiety, Difficulty Sleeping, Feelings of Worthlessness, Hopelessness, Feelings of Guilt, Thoughts of /Suicide and Difficulty Concentrating Judgement: Fair Diagnostics Vital Signs (24Hr): Vital Signs - 24 hr 01/10/20 18:00 01/11/20 04:52 01/11/20 05:55 Temperature 99.0 F 97.4 F 98.2 F Pulse Rate 88 97 73 Respiratory Rate 18 16 Blood Pressure 131/98 H 134/77 141/84 H Body Mass Index 29.8 Labs Results: 01/06/20 14:46 01/06/20 14:46 Medications Medications Current Medications Generic Name Dose Route Start Last Admin Trade Name Freq PRN Reason Stop Dose Admin Acetaminophen 650 mg 01/07/20 04:58 01/11/20 06:32 Acetaminophen 325 Mg Tablet PO 650 mg Q6H PRN Administration Headache/Pain Mild Scale (1-3) Al Hydroxide/Mg Hydroxide 30 ml 01/07/20 04:58 Magnesium Hydrox/Alum Hydrox 30 Ml Oral.Susp PO Q6H PRN Heartburn/Nausea Clonazepam 1 mg 01/08/20 15:00 01/10/20 22:04 Clonazepam 1 Mg Tablet PO 1 mg TID CONNER Administration Hydroxyzine HCl 50 mg 01/09/20 17:22 01/10/20 22:04 Hydroxyzine Hcl 25 Mg Tablet PO 50 mg BEDTIME PRN Administration Anxiety [place] Carbonate 300 mg 01/08/20 14:00 01/10/20 22:04 [place] Carbonate 300 Mg Capsule PO 300 mg BID CONNER Administration Magnesium Hydroxide 30 ml 01/07/20 04:58 Milk Of Magnesia 30 Ml Oral.Susp PO DAILY PRN Constipation Nicotine Polacrilex 2 mg 01/07/20 04:28 01/11/20 04:51 Nicotine Polacrilex 2 Mg Gum BUCCAL 2 mg Q2H PRN Administration Nicotine Cravings Risperidone 2 mg 01/09/20 21:00 01/10/20 22:03 Risperidone 0.5 Mg Tablet PO 2 mg BEDTIME CONNER Administration Sertraline HCl 75 mg 01/07/20 09:00 01/10/20 08:44 Sertraline Hcl 50 Mg Tablet PO 75 mg DAILY CONNER Administration Trazodone HCl 150 mg 01/09/20 13:57 01/10/20 22:02 Trazodone Hcl 50 Mg Tablet PO 150 mg BEDTIME PRN Administration insomnia Allergies Allergies Allergy/AdvReac Type Severity Reaction Status Date / Time No Known Allergies Allergy Unverified 11/26/19 15:12 N.K.D.A Allergy Unknown Uncoded 11/09/19 00:00 Assessment & Plan Assessment & Plan (1) Schizoaffective disorder: Qualifiers: Schizoaffective disorder type: bipolar Qualified Code(s): F25.0 - Schizoaffective disorder, bipolar type Status: Acute Code(s): F25.9 - Schizoaffective disorder, unspecified Assessment and Plan: Increase risperdal and trazodone. Check level of Li Greater than 50% of the session was spent on counseling and/or coordination of care Patient educated on: diagnosis and medication risk/benefits Informed Consent: further education needed Reason for contiued inpatient stay Substantial Risk for: harm to self and rapid decompensation
[2020-01-11] MEDS: clonazePAM 1 MG TABLET PO ×3 (09:10→23:39)
[2020-01-11] MEDS: Sertraline HCL 50 MG TABLET 75 MG PO (09:10)
[2020-01-11] MEDS: Lithium Carbonate 300 MG CAPSULE PO ×2 (09:12→22:37)
[2020-01-11 16:45] VITALS: BP 117/72; PULSE 96; TEMP 36.8
--- NOTE | 2020-01-11 21:29 | P.PNPSI_ITS ---
Subjective Subjective Date of Service: 01/11/20 Reason For Visit: Psychosis Subjective Notes: Conditional Voluntary Review of Systems Reports system reviewed and no additional complaints, except as documented, Reports as per HPI and Denies behavioral changes Psychiatric: Denies behavioral changes Diagnostics Vital Signs (24Hr): Vital Signs - 24 hr 01/11/20 04:52 01/11/20 05:55 01/11/20 16:45 Temperature 97.4 F 98.2 F 98.2 F Pulse Rate 97 73 96 Respiratory Rate 16 Blood Pressure 134/77 141/84 H 117/72 Body Mass Index 29.8 Labs Results: 01/06/20 14:46 01/06/20 14:46 Medications Medications Current Medications Generic Name Dose Route Start Last Admin Trade Name Freq PRN Reason Stop Dose Admin Acetaminophen 650 mg 01/07/20 04:58 01/11/20 19:37 Acetaminophen 325 Mg Tablet PO 650 mg Q6H PRN Administration Headache/Pain Mild Scale (1-3) Al Hydroxide/Mg Hydroxide 30 ml 01/07/20 04:58 Magnesium Hydrox/Alum Hydrox 30 Ml Oral.Susp PO Q6H PRN Heartburn/Nausea Clonazepam 1 mg 01/08/20 15:00 01/11/20 14:31 Clonazepam 1 Mg Tablet PO 1 mg TID CONNER Administration Hydroxyzine HCl 50 mg 01/09/20 17:22 01/10/20 22:04 Hydroxyzine Hcl 25 Mg Tablet PO 50 mg BEDTIME PRN Administration Anxiety [place] Carbonate 300 mg 01/08/20 14:00 01/11/20 09:12 [place] Carbonate 300 Mg Capsule PO 300 mg BID CONNER Administration Magnesium Hydroxide 30 ml 01/07/20 04:58 Milk Of Magnesia 30 Ml Oral.Susp PO DAILY PRN Constipation Nicotine Polacrilex 2 mg 01/07/20 04:28 01/11/20 19:37 Nicotine Polacrilex 2 Mg Gum BUCCAL 2 mg Q2H PRN Administration Nicotine Cravings Risperidone 3 mg 01/11/20 21:00 Risperidone 0.5 Mg Tablet PO BEDTIME CONNER Sertraline HCl 75 mg 01/07/20 09:00 01/11/20 09:10 Sertraline Hcl 50 Mg Tablet PO 75 mg DAILY CONNER Administration Trazodone HCl 200 mg 01/11/20 21:00 Trazodone Hcl 50 Mg Tablet PO BEDTIME CONNER Allergies Allergies Allergy/AdvReac Type Severity Reaction Status Date / Time No Known Allergies Allergy Unverified 11/26/19 15:12 N.K.D.A Allergy Unknown Uncoded 11/09/19 00:00 Assessment & Plan Greater than 50% of the session was spent on counseling and/or coordination of care
[2020-01-11] MEDS: risperiDONE 0.5 MG TABLET 3 MG PO (22:37)
[2020-01-11] MEDS: traZODone HCL 50 MG TABLET 200 MG PO (22:38)
[2020-01-12 05:50] VITALS: BP 147/89; PULSE 102; RESP 18; TEMP 37.2
[2020-01-12] MEDS: Nicotine Polacrilex 2 MG GUM BUCCAL ×5 (06:53→21:15)
[2020-01-12 08:32] LABS: Lithium 0.38 mmol/L (0.60-1.20)
[2020-01-12] MEDS: clonazePAM 1 MG TABLET PO ×3 (08:37→22:19)
[2020-01-12] MEDS: Sertraline HCL 50 MG TABLET 75 MG PO (08:37)
[2020-01-12] MEDS: Lithium Carbonate 300 MG CAPSULE PO (08:38)
--- NOTE | 2020-01-12 09:13 | P.PNPSI_ITS ---
Subjective Subjective Date of Service: 01/11/20 Reason For Visit: Psychosis Subjective Notes: Conditional Voluntary Interim History: Dave slept well last night. He continues to feel depressed/anxious. He reports that this is a particularly hard day for him since it is his son's 11th birthday today. He is tolerating the medication changes. He agrees to an increase in lithium. We discussed various placement options which include [facility], and that this would need a taper of klonopin. He will consider his options. Medication Compliance: Yes Side effects from medications: No Attending Groups: Intermittent Review of Systems Acute medical concerns: No Medical Review of Systems: unchanged Review of Systems Reports system reviewed and no additional complaints, except as documented, Reports as per HPI and Denies behavioral changes Psychiatric: Denies behavioral changes Mental Status Exam Mental Status Exam Patient Appearance: Well Grooomed Patient Orientation: Person, Place, Time and Situation Level of Consciousness: Awake and Appropriate Patient Behavior: Appropriate and Good Eye Contact Mood Description: Calm, Depressed and Anxious Affect Description: Calm and Blunted Patient Cognition Impaired: No Ability to Follow Directions: Good Speech Pattern: Clear, Spontaneous Speech and Soft-Spoken Memory Description: Intact Hallucinations: None Delusions: Not Present Thought Content: positive for Circumstantial, positive for Goal Oriented, negative for Suicidal Ideation and negative for Homicidal Ideation Depressive Symptoms: Increased Anxiety, Hopelessness, Feelings of Guilt, Unhappiness, Thoughts of /Suicide, Low Self Esteem and Loss of Energy Judgement: Fair Diagnostics Vital Signs (24Hr): Vital Signs - 24 hr 01/11/20 16:45 01/12/20 05:50 Temperature 98.2 F 98.9 F Pulse Rate 96 102 H Respiratory Rate 18 Blood Pressure 117/72 147/89 H Body Mass Index 29.8 Labs Results: 01/06/20 14:46 01/06/20 14:46 Labs: Laboratory Results - last 48 hr 01/12/20 07:54 [place] 0.38 L Medications Medications Current Medications Generic Name Dose Route Start Last Admin Trade Name Freq PRN Reason Stop Dose Admin Acetaminophen 650 mg 01/07/20 04:58 01/11/20 19:37 Acetaminophen 325 Mg Tablet PO 650 mg Q6H PRN Administration Headache/Pain Mild Scale (1-3) Al Hydroxide/Mg Hydroxide 30 ml 01/07/20 04:58 Magnesium Hydrox/Alum Hydrox 30 Ml Oral.Susp PO Q6H PRN Heartburn/Nausea Clonazepam 1 mg 01/08/20 15:00 01/12/20 08:37 Clonazepam 1 Mg Tablet PO 1 mg TID CONNER Administration Hydroxyzine HCl 50 mg 01/09/20 17:22 01/10/20 22:04 Hydroxyzine Hcl 25 Mg Tablet PO 50 mg BEDTIME PRN Administration Anxiety [place] Carbonate 300 mg 01/08/20 14:00 01/12/20 08:38 [place] Carbonate 300 Mg Capsule PO 300 mg BID OCNNER Administration Magnesium Hydroxide 30 ml 01/07/20 04:58 Milk Of Magnesia 30 Ml Oral.Susp PO DAILY PRN Constipation Nicotine Polacrilex 2 mg 01/07/20 04:28 01/12/20 06:53 Nicotine Polacrilex 2 Mg Gum BUCCAL 2 mg Q2H PRN Administration Nicotine Cravings Risperidone 3 mg 01/11/20 21:00 01/11/20 22:37 Risperidone 0.5 Mg Tablet PO 3 mg BEDTIME CONNER Administration Sertraline HCl 75 mg 01/07/20 09:00 01/12/20 08:37 Sertraline Hcl 50 Mg Tablet PO 75 mg DAILY CONNRE Administration Trazodone HCl 200 mg 01/11/20 21:00 01/11/20 22:38 Trazodone Hcl 50 Mg Tablet PO 200 mg BEDTIME CONNER Administration Allergies Allergies Allergy/AdvReac Type Severity Reaction Status Date / Time No Known Allergies Allergy Unverified 11/26/19 15:12 N.K.D.A Allergy Unknown Uncoded 11/09/19 00:00 Assessment & Plan Assessment & Plan (1) Schizoaffective disorder: Qualifiers: Schizoaffective disorder type: bipolar Qualified Code(s): F25.0 - Schizoaffective disorder, bipolar type Status: Acute Code(s): F25.9 - Schizoaffective disorder, unspecified Assessment and Plan: Increase Risperdal and Trazodone. Increase [place] CT support Consider housing options Greater than 50% of the session was spent on counseling and/or coordination of care Patient educated on: diagnosis and medication risk/benefits Informed Consent: further education needed Reason for contiued inpatient stay Substantial Risk for: inability to function and rapid decompensation
[2020-01-12] MEDS: Acetaminophen 325 MG TABLET 650 MG PO ×2 (10:19→17:09)
[2020-01-12 16:41] VITALS: BP 130/74; PULSE 94; TEMP 37.2
[2020-01-12] MEDS: traZODone HCL 50 MG TABLET 200 MG PO (22:17)
[2020-01-12] MEDS: risperiDONE 0.5 MG TABLET 3 MG PO (22:18)
[2020-01-12] MEDS: Lithium Carbonate 300 MG CAPSULE 600 MG PO (22:19)
[2020-01-13 05:55] VITALS: BP 135/82; PULSE 70; RESP 18; TEMP 36.8
[2020-01-13] MEDS: Nicotine Polacrilex 2 MG GUM BUCCAL ×5 (06:20→18:10)
[2020-01-13] MEDS: Acetaminophen 325 MG TABLET 650 MG PO ×2 (06:20→15:50)
[2020-01-13 08:47] LABS: Estimated Average Glucose 105 mg/dL; Hemoglobin A1c % 5.3 %
[2020-01-13] MEDS: Lithium Carbonate 300 MG CAPSULE 600 MG PO ×2 (09:00→22:40)
[2020-01-13] MEDS: Sertraline HCL 50 MG TABLET 75 MG PO (09:00)
[2020-01-13] MEDS: clonazePAM 1 MG TABLET PO ×3 (09:00→21:09)
--- NOTE | 2020-01-13 09:18 | P.PNPSI_ITS ---
Subjective Subjective Date of Service: 01/13/20 Reason For Visit: Psychosis Subjective Notes: Conditional Voluntary Interim History: Dave slept well last night. He continues to feel depressed/anxious, but he feels relief that his son's birthday is behind him. He spoke at length about the events that lead to his not seeing his son for several months. He does feel that the current medications combination has been helpful. We discussed various placement options which include [facility], and that this would need a taper of klonopin. He will consider his options. Medication Compliance: Yes Side effects from medications: No Attending Groups: Yes Review of Systems Medical Review of Systems: unchanged Review of Systems Reports system reviewed and no additional complaints, except as documented, Reports as per HPI and Denies behavioral changes Psychiatric: Denies behavioral changes Mental Status Exam Mental Status Exam Patient Appearance: Well Grooomed Patient Orientation: Person, Place, Time and Situation Level of Consciousness: Awake and Appropriate Patient Behavior: Appropriate and Good Eye Contact Mood Description: Calm, Depressed, Anxious and Sad Affect Description: Calm and Blunted Patient Cognition Impaired: No Ability to Follow Directions: Good Speech Pattern: Clear, Spontaneous Speech and Soft-Spoken Memory Description: Intact Hallucinations: None Delusions: Not Present Thought Process: Intact Thought Content: positive for Obsessional Thoughts, positive for Preoccupation, negative for Suicidal Ideation and negative for Homicidal Ideation Depressive Symptoms: Increased Anxiety, Hopelessness, Feelings of Guilt, Unhappiness, Increased Fatigue and Thoughts of /Suicide Judgement: Fair Diagnostics Vital Signs (24Hr): Vital Signs - 24 hr 01/12/20 16:41 01/13/20 05:55 Temperature 98.9 F 98.3 F Pulse Rate 94 70 Respiratory Rate 18 Blood Pressure 130/74 135/82 Body Mass Index 29.8 Labs Results: 01/06/20 14:46 01/06/20 14:46 Labs: Laboratory Results - last 48 hr 01/12/20 01/13/20 07:54 08:17 Estimat Average Glucose 105 Hemoglobin A1c % 5.3 [place] 0.38 L Medications Medications Current Medications Generic Name Dose Route Start Last Admin Trade Name Freq PRN Reason Stop Dose Admin Acetaminophen 650 mg 01/07/20 04:58 01/13/20 06:20 Acetaminophen 325 Mg Tablet PO 650 mg Q6H PRN Administration Headache/Pain Mild Scale (1-3) Al Hydroxide/Mg Hydroxide 30 ml 01/07/20 04:58 Magnesium Hydrox/Alum Hydrox 30 Ml Oral.Susp PO Q6H PRN Heartburn/Nausea Clonazepam 1 mg 01/08/20 15:00 01/13/20 09:00 Clonazepam 1 Mg Tablet PO 1 mg TID CONNER Administration Hydroxyzine HCl 50 mg 01/09/20 17:22 01/10/20 22:04 Hydroxyzine Hcl 25 Mg Tablet PO 50 mg BEDTIME PRN Administration Anxiety [place] Carbonate 600 mg 01/12/20 21:00 01/13/20 09:00 [place] Carbonate 300 Mg Capsule PO 600 mg BID CONNER Administration Magnesium Hydroxide 30 ml 01/07/20 04:58 Milk Of Magnesia 30 Ml Oral.Susp PO DAILY PRN Constipation Nicotine Polacrilex 2 mg 01/07/20 04:28 01/13/20 06:20 Nicotine Polacrilex 2 Mg Gum BUCCAL 2 mg Q2H PRN Administration Nicotine Cravings Risperidone 3 mg 01/11/20 21:00 01/12/20 22:18 Risperidone 0.5 Mg Tablet PO 3 mg BEDTIME CONNER Administration Sertraline HCl 75 mg 01/07/20 09:00 01/13/20 09:00 Sertraline Hcl 50 Mg Tablet PO 75 mg DAILY CONNER Administration Trazodone HCl 200 mg 01/11/20 21:00 01/12/20 22:17 Trazodone Hcl 50 Mg Tablet PO 200 mg BEDTIME CONNER Administration Allergies Allergies Allergy/AdvReac Type Severity Reaction Status Date / Time No Known Allergies Allergy Unverified 11/26/19 15:12 N.K.D.A Allergy Unknown Uncoded 11/09/19 00:00 Assessment & Plan Assessment & Plan (1) Schizoaffective disorder: Qualifiers: Schizoaffective disorder type: bipolar Qualified Code(s): F25.0 - Schizoaffective disorder, bipolar type Status: Acute Code(s): F25.9 - Schizoaffective disorder, unspecified Assessment and Plan: CT medication without change CT support Consider housing options Greater than 50% of the session was spent on counseling and/or coordination of care Patient educated on: diagnosis and medication risk/benefits Informed Consent: understands Reason for contiued inpatient stay Substantial Risk for: inability to function and rapid decompensation
[2020-01-13 09:38] LABS: Cholesterol 193 mg/dL; HDL Cholesterol 44 mg/dL; LDL Cholesterol Calculated 121 mg/dl; Triglycerides 140 mg/dL
[2020-01-13 18:00] VITALS: BP 125/74; PULSE 86; TEMP 37.2
[2020-01-13] MEDS: risperiDONE 0.5 MG TABLET 3 MG PO (21:09)
[2020-01-13] MEDS: traZODone HCL 50 MG TABLET 200 MG PO (22:40)
[2020-01-14] MEDS: Nicotine Polacrilex 2 MG GUM BUCCAL ×4 (04:39→18:29)
[2020-01-14] MEDS: Acetaminophen 325 MG TABLET 650 MG PO ×2 (04:39→15:39)
[2020-01-14 05:55] VITALS: BP 109/62; PULSE 75; RESP 16; TEMP 36.3; O2SAT 96
[2020-01-14 07:00] VITALS: BMI 29.8
--- NOTE | 2020-01-14 09:11 | P.PNPSI_ITS ---
Subjective Subjective Date of Service: 01/14/20 Reason For Visit: Psychosis Subjective Notes: Conditional Voluntary Interim History: Dave did not sleep well last night. He has been having intrusive thoughts about his son and it is hard for him to settle down. He does feel that the current medications combination has been helpful, though is still quite depressed. We agreed to increase risperdal. We discussed various placement options which include [facility], and that this would need a taper of klonopin. He will consider his options. Medication Compliance: Yes Side effects from medications: No Attending Groups: Yes Review of Systems Acute medical concerns: No Medical Review of Systems: unchanged Review of Systems Reports system reviewed and no additional complaints, except as documented, Reports as per HPI and Denies behavioral changes Psychiatric: Denies behavioral changes Mental Status Exam Mental Status Exam Patient Appearance: Well Grooomed Patient Orientation: Person, Place, Time and Situation Level of Consciousness: Awake and Appropriate Patient Behavior: Appropriate and Good Eye Contact Mood Description: Calm, Depressed, Anxious and Sad Affect Description: Calm and Blunted Patient Cognition Impaired: No Ability to Follow Directions: Good Speech Pattern: Clear, Spontaneous Speech and Soft-Spoken Memory Description: Intact Hallucinations: None Delusions: Not Present Thought Process: Intact Thought Content: positive for Obsessional Thoughts, positive for Preoccupation, negative for Suicidal Ideation and negative for Homicidal Ideation Depressive Symptoms: Increased Anxiety, Hopelessness, Feelings of Guilt, Unhappiness, Increased Fatigue and Thoughts of /Suicide Judgement: Fair Diagnostics Vital Signs (24Hr): Vital Signs - 24 hr 01/13/20 18:00 01/14/20 05:55 Temperature 98.9 F 97.3 F Pulse Rate 86 75 Respiratory Rate 16 Blood Pressure 125/74 109/62 Pulse Oximetry 96 Body Mass Index 29.8 Labs Results: 01/06/20 14:46 01/06/20 14:46 Labs: Laboratory Results - last 48 hr 01/13/20 01/13/20 01/13/20 08:12 08:12 08:17 Estimat Average Glucose 105 Hemoglobin A1c % 5.3 Triglycerides 140 Cholesterol 193 LDL Cholesterol, Calc 121 HDL Cholesterol 44 Lipoprotein (a) Cancelled Medications Medications Current Medications Generic Name Dose Route Start Last Admin Trade Name Freq PRN Reason Stop Dose Admin Acetaminophen 650 mg 01/07/20 04:58 01/14/20 04:39 Acetaminophen 325 Mg Tablet PO 650 mg Q6H PRN Administration Headache/Pain Mild Scale (1-3) Al Hydroxide/Mg Hydroxide 30 ml 01/07/20 04:58 Magnesium Hydrox/Alum Hydrox 30 Ml Oral.Susp PO Q6H PRN Heartburn/Nausea Clonazepam 1 mg 01/08/20 15:00 01/13/20 21:09 Clonazepam 1 Mg Tablet PO 1 mg TID CONNER Administration Hydroxyzine HCl 50 mg 01/09/20 17:22 01/10/20 22:04 Hydroxyzine Hcl 25 Mg Tablet PO 50 mg BEDTIME PRN Administration Anxiety [place] Carbonate 600 mg 01/12/20 21:00 01/13/20 22:40 [place] Carbonate 300 Mg Capsule PO 600 mg BID CONNER Administration Magnesium Hydroxide 30 ml 01/07/20 04:58 Milk Of Magnesia 30 Ml Oral.Susp PO DAILY PRN Constipation Nicotine Polacrilex 2 mg 01/07/20 04:28 01/14/20 04:39 Nicotine Polacrilex 2 Mg Gum BUCCAL 2 mg Q2H PRN Administration Nicotine Cravings Risperidone 3 mg 01/11/20 21:00 01/13/20 21:09 Risperidone 0.5 Mg Tablet PO 3 mg BEDTIME CONNER Administration Sertraline HCl 75 mg 01/07/20 09:00 01/13/20 09:00 Sertraline Hcl 50 Mg Tablet PO 75 mg DAILY CONNER Administration Trazodone HCl 200 mg 01/11/20 21:00 01/13/20 22:40 Trazodone Hcl 50 Mg Tablet PO 200 mg BEDTIME CONNER Administration Allergies Allergies Allergy/AdvReac Type Severity Reaction Status Date / Time No Known Allergies Allergy Unverified 11/26/19 15:12 N.K.D.A Allergy Unknown Uncoded 11/09/19 00:00 Assessment & Plan Assessment & Plan (1) Schizoaffective disorder: Qualifiers: Schizoaffective disorder type: bipolar Qualified Code(s): F25.0 - Schizoaffective disorder, bipolar type Status: Acute Code(s): F25.9 - Schizoaffective disorder, unspecified Assessment and Plan: Increase risperdal CT [facility] Consider disposition options with SW Greater than 50% of the session was spent on counseling and/or coordination of care Patient educated on: diagnosis and medication risk/benefits Informed Consent: further education needed Reason for contiued inpatient stay Substantial Risk for: inability to function and rapid decompensation
[2020-01-14] MEDS: Lithium Carbonate 300 MG CAPSULE 600 MG PO ×2 (09:42→22:59)
[2020-01-14] MEDS: clonazePAM 1 MG TABLET PO ×3 (09:43→22:59)
[2020-01-14] MEDS: Sertraline HCL 50 MG TABLET 75 MG PO (09:43)
[2020-01-14] MEDS: Nicotine 21 MG PATCH.TD24 TRANSDERMA (11:24)
[2020-01-14] MEDS: risperiDONE 0.5 MG TABLET PO (14:36)
[2020-01-14 18:00] VITALS: BP 130/83; PULSE 92; TEMP 37.2
[2020-01-14] MEDS: traZODone HCL 50 MG TABLET 200 MG PO (22:59)
[2020-01-14] MEDS: risperiDONE 1 MG TABLET 4 MG PO (23:48)
[2020-01-15 06:00] VITALS: BP 140/84; PULSE 80; TEMP 36.7
[2020-01-15] MEDS: Nicotine Polacrilex 2 MG GUM BUCCAL ×4 (06:44→23:05)
[2020-01-15] MEDS: Acetaminophen 325 MG TABLET 650 MG PO (06:44)
[2020-01-15] MEDS: Lithium Carbonate 300 MG CAPSULE 600 MG PO ×2 (08:23→23:05)
[2020-01-15] MEDS: Nicotine 21 MG PATCH.TD24 TRANSDERMA (08:23)
[2020-01-15] MEDS: clonazePAM 1 MG TABLET PO ×3 (08:23→23:05)
[2020-01-15] MEDS: Sertraline HCL 50 MG TABLET 100 MG PO (08:24)
--- NOTE | 2020-01-15 09:10 | HO.PSYCHPN ---
Subjective Subjective Date of Service: 01/15/20 Reason For Visit: Psychosis Subjective Notes: Conditional Voluntary Interim History: Dave did not sleep well last night. We agreed to add vistaril. Sleep hygiene was reviewed. We discussed various placement options which include [facility], and that this would need a taper of klonopin. He will consider his options. He was informed that he neeneeds to make a decision today. He has previously been being worked up for pheochromocytoma. Will collect 24 hour urine for fractionated metanephrines and catecholamines. Medication Compliance: Yes Side effects from medications: No Attending Groups: Yes Review of Systems Acute medical concerns: No Medical Review of Systems: unchanged Review of Systems Reports system reviewed and no additional complaints, except as documented, Reports as per HPI and Denies behavioral changes Psychiatric: Denies behavioral changes Mental Status Exam Mental Status Exam Patient Appearance: Well Grooomed Patient Orientation: Person, Place, Time and Situation Level of Consciousness: Awake and Appropriate Patient Behavior: Appropriate and Good Eye Contact Mood Description: Calm, Depressed, Anxious and Sad Affect Description: Calm and Blunted Patient Cognition Impaired: No Ability to Follow Directions: Good Speech Pattern: Clear, Spontaneous Speech and Soft-Spoken Memory Description: Intact Hallucinations: None Delusions: Not Present Thought Process: Intact Thought Content: positive for Obsessional Thoughts, positive for Preoccupation, negative for Suicidal Ideation and negative for Homicidal Ideation Depressive Symptoms: Increased Anxiety, Hopelessness, Feelings of Guilt, Unhappiness, Increased Fatigue and Thoughts of /Suicide Judgement: Fair Diagnostics Vital Signs (24Hr): Vital Signs - 24 hr 01/14/20 18:00 01/15/20 06:00 Temperature 98.9 F 98.1 F Pulse Rate 92 80 Blood Pressure 130/83 140/84 H Body Mass Index 29.8 Labs Results: 01/06/20 14:46 01/06/20 14:46 Labs: Laboratory Results - last 48 hr 01/13/20 01/13/20 08:12 08:12 Triglycerides 140 Cholesterol 193 LDL Cholesterol, Calc 121 HDL Cholesterol 44 Lipoprotein (a) Cancelled Medications Medications Current Medications Generic Name Dose Route Start Last Admin Trade Name Freq PRN Reason Stop Dose Admin Acetaminophen 650 mg 01/07/20 04:58 01/15/20 06:44 Acetaminophen 325 Mg Tablet PO 650 mg Q6H PRN Administration Headache/Pain Mild Scale (1-3) Al Hydroxide/Mg Hydroxide 30 ml 01/07/20 04:58 Magnesium Hydrox/Alum Hydrox 30 Ml Oral.Susp PO Q6H PRN Heartburn/Nausea Clonazepam 1 mg 01/08/20 15:00 01/15/20 08:23 Clonazepam 1 Mg Tablet PO 1 mg TID CONNER Administration Hydroxyzine HCl 50 mg 01/09/20 17:22 01/10/20 22:04 Hydroxyzine Hcl 25 Mg Tablet PO 50 mg BEDTIME PRN Administration Anxiety [place] Carbonate 600 mg 01/12/20 21:00 01/15/20 08:23 [place] Carbonate 300 Mg Capsule PO 600 mg BID CONNER Administration Magnesium Hydroxide 30 ml 01/07/20 04:58 Milk Of Magnesia 30 Ml Oral.Susp PO DAILY PRN Constipation Nicotine 21 mg 01/14/20 10:00 01/15/20 08:23 Nicotine 21 Mg Patch.Td24 TRANSDERMA 21 mg DAILY CONNER Administration Nicotine Polacrilex 2 mg 01/07/20 04:28 01/15/20 06:44 Nicotine Polacrilex 2 Mg Gum BUCCAL 2 mg Q2H PRN Administration Nicotine Cravings Risperidone 0.5 mg 01/14/20 14:30 01/14/20 14:36 Risperidone 0.5 Mg Tablet PO 0.5 mg BID@0830,1430 CONNER Administration Risperidone 4 mg 01/14/20 23:30 01/14/20 23:48 Risperidone 1 Mg Tablet PO 4 mg BEDTIME CONNER Administration Sertraline HCl 100 mg 01/15/20 09:00 01/15/20 08:24 Sertraline Hcl 50 Mg Tablet PO 100 mg DAILY CONNER Administration Trazodone HCl 200 mg 01/11/20 21:00 01/14/20 22:59 Trazodone Hcl 50 Mg Tablet PO 200 mg BEDTIME CONNER Administration Allergies Allergies Allergy/AdvReac Type Severity Reaction Status Date / Time No Known Allergies Allergy Unverified 11/26/19 15:12 N.K.D.A Allergy Unknown Uncoded 11/09/19 00:00 Assessment & Plan Assessment & Plan (1) Schizoaffective disorder: Qualifiers: Schizoaffective disorder type: bipolar Qualified Code(s): F25.0 - Schizoaffective disorder, bipolar type Status: Acute Code(s): F25.9 - Schizoaffective disorder, unspecified Assessment and Plan: Continue current medications Add vistaril at hs Collect 24 hour urine Refer to shelters Greater than 50% of the session was spent on counseling and/or coordination of care Patient educated on: diagnosis and medication risk/benefits Informed Consent: further education needed Reason for contiued inpatient stay Substantial Risk for: rapid decompensation
[2020-01-15] MEDS: risperiDONE 0.5 MG TABLET PO ×2 (09:46→10:52)
[2020-01-15 18:00] VITALS: BP 137/82; PULSE 91; TEMP 37.1
[2020-01-15] MEDS: traZODone HCL 50 MG TABLET 200 MG PO (23:04)
[2020-01-15] MEDS: hydrOXYzine HCL 25 MG TABLET 100 MG PO (23:05)
[2020-01-15] MEDS: risperiDONE 1 MG TABLET 4 MG PO (23:05)
[2020-01-16] MEDS: Sertraline HCL 50 MG TABLET 100 MG PO (09:22)
[2020-01-16] MEDS: Nicotine 21 MG PATCH.TD24 TRANSDERMA (09:22)
[2020-01-16] MEDS: clonazePAM 1 MG TABLET PO ×3 (09:22→22:44)
[2020-01-16] MEDS: risperiDONE 0.5 MG TABLET PO ×2 (09:26→14:20)
[2020-01-16 11:02] VITALS: BP 113/75; PULSE 82; TEMP 36.7
[2020-01-16 11:22] LABS: Lithium 0.64 mmol/L (0.60-1.20)
[2020-01-16] MEDS: Nicotine Polacrilex 2 MG GUM BUCCAL ×3 (11:36→21:51)
[2020-01-16] MEDS: Lithium Carbonate 300 MG CAPSULE 600 MG PO ×2 (11:36→22:45)
[2020-01-16 18:00] VITALS: BP 113/71; PULSE 87; TEMP 36.9
--- NOTE | 2020-01-16 19:44 | P.PNPSI_ITS ---
Subjective Subjective Date of Service: 01/16/20 Reason For Visit: Psychosis Subjective Notes: Conditional Voluntary Interim History: Dave did sleep better last night. We discussed various placement options which include [facility]. He does not wish to consider [facility] and [facility]irit will be [place]. He has previously been being worked up for pheochromocytoma. 24 hour urine for fractionated metanephrines and catecholamines is being collected. Medication Compliance: Yes Side effects from medications: No Attending Groups: Yes Review of Systems Acute medical concerns: No Medical Review of Systems: unchanged Review of Systems Reports system reviewed and no additional complaints, except as documented, Reports as per HPI and Denies behavioral changes Psychiatric: Denies behavioral changes Mental Status Exam Mental Status Exam Patient Appearance: Well Grooomed Patient Orientation: Person, Place, Time and Situation Level of Consciousness: Awake and Appropriate Patient Behavior: Appropriate and Good Eye Contact Mood Description: Calm, Depressed, Anxious and Sad Affect Description: Calm and Blunted Patient Cognition Impaired: No Ability to Follow Directions: Good Speech Pattern: Clear, Spontaneous Speech and Soft-Spoken Memory Description: Intact Hallucinations: None Delusions: Not Present Thought Process: Intact Thought Content: positive for Obsessional Thoughts, positive for Preoccupation, negative for Suicidal Ideation and negative for Homicidal Ideation Depressive Symptoms: Increased Anxiety, Hopelessness, Feelings of Guilt, Unhappiness, Increased Fatigue and Thoughts of /Suicide Judgement: Fair Diagnostics Vital Signs (24Hr): Vital Signs - 24 hr 01/16/20 11:02 Temperature 98.1 F Pulse Rate 82 Blood Pressure 113/75 Body Mass Index 29.8 Labs Results: 01/06/20 14:46 01/06/20 14:46 Labs: Laboratory Results - last 48 hr 01/16/20 10:23 [place] 0.64 Medications Medications Current Medications Generic Name Dose Route Start Last Admin Trade Name Freq PRN Reason Stop Dose Admin Acetaminophen 650 mg 01/07/20 04:58 01/15/20 06:44 Acetaminophen 325 Mg Tablet PO 650 mg Q6H PRN Administration Headache/Pain Mild Scale (1-3) Al Hydroxide/Mg Hydroxide 30 ml 01/07/20 04:58 Magnesium Hydrox/Alum Hydrox 30 Ml Oral.Susp PO Q6H PRN Heartburn/Nausea Clonazepam 1 mg 01/08/20 15:00 01/16/20 14:20 Clonazepam 1 Mg Tablet PO 1 mg TID CONNER Administration Hydroxyzine HCl 100 mg 01/15/20 21:00 01/15/20 23:05 Hydroxyzine Hcl 25 Mg Tablet PO 100 mg BEDTIME CONNER Administration [place] Carbonate 600 mg 01/12/20 21:00 01/16/20 11:36 [place] Carbonate 300 Mg Capsule PO 600 mg BID CONNER Administration Magnesium Hydroxide 30 ml 01/07/20 04:58 Milk Of Magnesia 30 Ml Oral.Susp PO DAILY PRN Constipation Nicotine 21 mg 01/14/20 10:00 01/16/20 09:22 Nicotine 21 Mg Patch.Td24 TRANSDERMA 21 mg DAILY CONNER Administration Nicotine Polacrilex 2 mg 01/07/20 04:28 01/16/20 16:31 Nicotine Polacrilex 2 Mg Gum BUCCAL 2 mg Q2H PRN Administration Nicotine Cravings Risperidone 0.5 mg 01/14/20 14:30 01/16/20 14:20 Risperidone 0.5 Mg Tablet PO 0.5 mg BID@0830,1430 CONNER Administration Risperidone 4 mg 01/14/20 23:30 01/15/20 23:05 Risperidone 1 Mg Tablet PO 4 mg BEDTIME CONNER Administration Sertraline HCl 100 mg 01/15/20 09:00 01/16/20 09:22 Sertraline Hcl 50 Mg Tablet PO 100 mg DAILY CONNER Administration Trazodone HCl 200 mg 01/11/20 21:00 01/15/20 23:04 Trazodone Hcl 50 Mg Tablet PO 200 mg BEDTIME CONNER Administration Allergies Allergies Allergy/AdvReac Type Severity Reaction Status Date / Time No Known Allergies Allergy Unverified 11/26/19 15:12 N.K.D.A Allergy Unknown Uncoded 11/09/19 00:00 Assessment & Plan Assessment & Plan (1) Schizoaffective disorder: Qualifiers: Schizoaffective disorder type: bipolar Qualified Code(s): F25.0 - Schizoaffective disorder, bipolar type Status: Acute Code(s): F25.9 - Schizoaffective disorder, unspecified Assessment and Plan: CT current medication regime. [place] for [place] [facility] [place] 01/17 or 01/18 Greater than 50% of the session was spent on counseling and/or coordination of care Patient educated on: diagnosis and medication risk/benefits Informed Consent: further education needed Reason for contiued inpatient stay Substantial Risk for: rapid decompensation
[2020-01-16] MEDS: hydrOXYzine HCL 25 MG TABLET 100 MG PO (22:45)
[2020-01-16] MEDS: risperiDONE 1 MG TABLET 4 MG PO (22:45)
[2020-01-16] MEDS: traZODone HCL 50 MG TABLET 200 MG PO (22:45)
[2020-01-17 05:55] VITALS: BP 102/59; PULSE 94; RESP 16; TEMP 36.7; O2SAT 95
[2020-01-17] MEDS: Acetaminophen 325 MG TABLET 650 MG PO ×2 (07:21→16:44)
[2020-01-17] MEDS: Nicotine Polacrilex 2 MG GUM BUCCAL ×4 (07:22→21:03)
[2020-01-17] MEDS: Sertraline HCL 50 MG TABLET 100 MG PO (08:18)
[2020-01-17] MEDS: risperiDONE 0.5 MG TABLET PO ×2 (08:18→14:08)
[2020-01-17] MEDS: Lithium Carbonate 300 MG CAPSULE 600 MG PO ×2 (08:18→22:34)
[2020-01-17] MEDS: Nicotine 21 MG PATCH.TD24 TRANSDERMA (08:18)
[2020-01-17] MEDS: clonazePAM 1 MG TABLET PO ×3 (08:18→22:33)
--- NOTE | 2020-01-17 11:54 | P.PNPSI_ITS ---
Subjective Subjective Date of Service: 01/17/20 Reason For Visit: Psychosis Subjective Notes: Conditional Voluntary Interim History: Dave did sleep better last night. He reports that his mood is better. He understands that he will be DC to a [facility]. He has previously been being worked up for pheochromocytoma. 24 hour urine for fractionated metanephrines and catecholamines is collected and has gone to the lab. Medication Compliance: Yes Side effects from medications: No Attending Groups: Yes Review of Systems Acute medical concerns: No Medical Review of Systems: unchanged Review of Systems Reports system reviewed and no additional complaints, except as documented, Reports as per HPI and Denies behavioral changes Psychiatric: Denies behavioral changes Mental Status Exam Mental Status Exam Patient Appearance: Well Grooomed Patient Orientation: Person, Place, Time and Situation Level of Consciousness: Awake and Appropriate Patient Behavior: Appropriate and Good Eye Contact Mood Description: Calm, Depressed, Anxious and Sad Affect Description: Calm and Blunted Patient Cognition Impaired: No Ability to Follow Directions: Good Speech Pattern: Clear, Spontaneous Speech and Soft-Spoken Memory Description: Intact Hallucinations: None Delusions: Not Present Thought Process: Intact Thought Content: positive for Obsessional Thoughts, positive for Preoccupation, negative for Suicidal Ideation and negative for Homicidal Ideation Depressive Symptoms: Increased Anxiety, Hopelessness, Feelings of Guilt, Unhappiness, Increased Fatigue and Thoughts of /Suicide Judgement: Fair Diagnostics Vital Signs (24Hr): Vital Signs - 24 hr 01/16/20 18:00 01/17/20 05:55 Temperature 98.4 F 98.1 F Pulse Rate 87 94 Respiratory Rate 16 Blood Pressure 113/71 102/59 L Pulse Oximetry 95 Body Mass Index 29.8 Labs Results: 01/06/20 14:46 01/06/20 14:46 Labs: Laboratory Results - last 48 hr 01/16/20 10:23 [place] 0.64 Medications Medications Current Medications Generic Name Dose Route Start Last Admin Trade Name Freq PRN Reason Stop Dose Admin Acetaminophen 650 mg 01/07/20 04:58 01/17/20 07:21 Acetaminophen 325 Mg Tablet PO 650 mg Q6H PRN Administration Headache/Pain Mild Scale (1-3) Al Hydroxide/Mg Hydroxide 30 ml 01/07/20 04:58 Magnesium Hydrox/Alum Hydrox 30 Ml Oral.Susp PO Q6H PRN Heartburn/Nausea Clonazepam 1 mg 01/08/20 15:00 01/17/20 08:18 Clonazepam 1 Mg Tablet PO 1 mg TID CONNER Administration Hydroxyzine HCl 100 mg 01/15/20 21:00 01/16/20 22:45 Hydroxyzine Hcl 25 Mg Tablet PO 100 mg BEDTIME CONNER Administration [place] Carbonate 600 mg 01/12/20 21:00 01/17/20 08:18 [place] Carbonate 300 Mg Capsule PO 600 mg BID CONNER Administration Magnesium Hydroxide 30 ml 01/07/20 04:58 Milk Of Magnesia 30 Ml Oral.Susp PO DAILY PRN Constipation Nicotine 21 mg 01/14/20 10:00 01/17/20 08:18 Nicotine 21 Mg Patch.Td24 TRANSDERMA 21 mg DAILY CONNER Administration Nicotine Polacrilex 2 mg 01/07/20 04:28 01/17/20 11:13 Nicotine Polacrilex 2 Mg Gum BUCCAL 2 mg Q2H PRN Administration Nicotine Cravings Risperidone 0.5 mg 01/14/20 14:30 01/17/20 08:18 Risperidone 0.5 Mg Tablet PO 0.5 mg BID@0830,1430 CONNER Administration Risperidone 4 mg 01/14/20 23:30 01/16/20 22:45 Risperidone 1 Mg Tablet PO 4 mg BEDTIME CONNER Administration Sertraline HCl 100 mg 01/15/20 09:00 01/17/20 08:18 Sertraline Hcl 50 Mg Tablet PO 100 mg DAILY CONNER Administration Trazodone HCl 200 mg 01/11/20 21:00 01/16/20 22:45 Trazodone Hcl 50 Mg Tablet PO 200 mg BEDTIME CONNER Administration Allergies Allergies Allergy/AdvReac Type Severity Reaction Status Date / Time No Known Allergies Allergy Unverified 11/26/19 15:12 N.K.D.A Allergy Unknown Uncoded 11/09/19 00:00 Assessment & Plan Assessment & Plan (1) Schizoaffective disorder: Qualifiers: Schizoaffective disorder type: bipolar Qualified Code(s): F25.0 - Schizoaffective disorder, bipolar type Status: Acute Code(s): F25.9 - Schizoaffective disorder, unspecified Assessment and Plan: CT current plan Greater than 50% of the session was spent on counseling and/or coordination of care Patient educated on: diagnosis and medication risk/benefits Informed Consent: understands Reason for contiued inpatient stay Substantial Risk for: rapid decompensation
[2020-01-17 16:51] VITALS: BP 121/68; PULSE 78; TEMP 36.9
[2020-01-17] MEDS: hydrOXYzine HCL 25 MG TABLET 100 MG PO (22:33)
[2020-01-17] MEDS: risperiDONE 1 MG TABLET 4 MG PO (22:34)
[2020-01-17] MEDS: traZODone HCL 50 MG TABLET 200 MG PO (22:34)
[2020-01-18 06:00] VITALS: BP 129/73; PULSE 73; TEMP 37
[2020-01-18 08:08] LABS: Lithium 0.75 mmol/L (0.60-1.20)
[2020-01-18] MEDS: Sertraline HCL 50 MG TABLET 100 MG PO (08:28)
[2020-01-18] MEDS: Nicotine 21 MG PATCH.TD24 TRANSDERMA (08:29)
[2020-01-18] MEDS: Lithium Carbonate 300 MG CAPSULE 600 MG PO ×2 (08:29→22:28)
[2020-01-18] MEDS: clonazePAM 1 MG TABLET PO ×3 (08:29→22:29)
[2020-01-18] MEDS: risperiDONE 0.5 MG TABLET PO ×2 (08:50→14:54)
[2020-01-18] MEDS: Acetaminophen 325 MG TABLET 650 MG PO (10:36)
[2020-01-18] MEDS: Nicotine Polacrilex 2 MG GUM BUCCAL ×2 (10:37→14:54)
--- NOTE | 2020-01-18 14:08 | HO.PSYCHPN ---
Subjective Subjective Date of Service: 01/18/20 Reason For Visit: Psychosis Subjective Notes: Conditional Voluntary Interim History: Dave did sleep better last night. He reports that his mood is better. He understands that he will be DC to a long-term. He agrees to DC in am. Li level is therapeutic. Results of 24 hour urine are pending. Medication Compliance: Yes Side effects from medications: No Attending Groups: Yes Review of Systems Acute medical concerns: No Medical Review of Systems: unchanged Review of Systems Reports system reviewed and no additional complaints, except as documented, Reports as per HPI and Denies behavioral changes Psychiatric: Denies behavioral changes Mental Status Exam Mental Status Exam Patient Appearance: Well Grooomed Patient Orientation: Person, Place, Time and Situation Level of Consciousness: Awake and Appropriate Patient Behavior: Appropriate and Good Eye Contact Mood Description: Calm Affect Description: Calm Patient Cognition Impaired: No Ability to Follow Directions: Good Speech Pattern: Clear, Spontaneous Speech and Soft-Spoken Memory Description: Intact Hallucinations: None Delusions: Not Present Thought Process: Intact Thought Content: positive for Preoccupation, negative for Suicidal Ideation and negative for Homicidal Ideation Depressive Symptoms: Increased Anxiety Judgement: Fair Diagnostics Vital Signs (24Hr): Vital Signs - 24 hr 01/17/20 16:51 01/18/20 06:00 Temperature 98.4 F 98.6 F Pulse Rate 78 73 Blood Pressure 121/68 129/73 Body Mass Index 29.8 Labs Results: 01/06/20 14:46 01/06/20 14:46 Labs: Laboratory Results - last 48 hr 01/18/20 07:42 [place] 0.75 Medications Medications Current Medications Generic Name Dose Route Start Last Admin Trade Name Arnoldq PRN Reason Stop Dose Admin Acetaminophen 650 mg 01/07/20 04:58 01/18/20 10:36 Acetaminophen 325 Mg Tablet PO 650 mg Q6H PRN Administration Headache/Pain Mild Scale (1-3) Al Hydroxide/Mg Hydroxide 30 ml 01/07/20 04:58 Magnesium Hydrox/Alum Hydrox 30 Ml Oral.Susp PO Q6H PRN Heartburn/Nausea Clonazepam 1 mg 01/08/20 15:00 01/18/20 08:29 Clonazepam 1 Mg Tablet PO 1 mg TID CONNER Administration Hydroxyzine HCl 100 mg 01/15/20 21:00 01/17/20 22:33 Hydroxyzine Hcl 25 Mg Tablet PO 100 mg BEDTIME CONNER Administration [place] Carbonate 600 mg 01/12/20 21:00 01/18/20 08:29 [place] Carbonate 300 Mg Capsule PO 600 mg BID CONNER Administration Magnesium Hydroxide 30 ml 01/07/20 04:58 Milk Of Magnesia 30 Ml Oral.Susp PO DAILY PRN Constipation Nicotine 21 mg 01/14/20 10:00 01/18/20 08:29 Nicotine 21 Mg Patch.Td24 TRANSDERMA 21 mg DAILY CONNER Administration Nicotine Polacrilex 2 mg 01/07/20 04:28 01/18/20 10:37 Nicotine Polacrilex 2 Mg Gum BUCCAL 2 mg Q2H PRN Administration Nicotine Cravings Risperidone 0.5 mg 01/14/20 14:30 01/18/20 08:50 Risperidone 0.5 Mg Tablet PO 0.5 mg BID@0830,1430 CONNER Administration Risperidone 4 mg 01/14/20 23:30 01/17/20 22:34 Risperidone 1 Mg Tablet PO 4 mg BEDTIME CONNER Administration Sertraline HCl 100 mg 01/15/20 09:00 01/18/20 08:28 Sertraline Hcl 50 Mg Tablet PO 100 mg DAILY CONNER Administration Trazodone HCl 200 mg 01/11/20 21:00 01/17/20 22:34 Trazodone Hcl 50 Mg Tablet PO 200 mg BEDTIME CONNER Administration Allergies Allergies Allergy/AdvReac Type Severity Reaction Status Date / Time No Known Allergies Allergy Unverified 11/26/19 15:12 N.K.D.A Allergy Unknown Uncoded 11/09/19 00:00 Assessment & Plan Assessment & Plan (1) Schizoaffective disorder: Qualifiers: Schizoaffective disorder type: bipolar Qualified Code(s): F25.0 - Schizoaffective disorder, bipolar type Status: Acute Code(s): F25.9 - Schizoaffective disorder, unspecified Assessment and Plan: CT current treatment plan Greater than 50% of the session was spent on counseling and/or coordination of care Patient educated on: diagnosis and medication risk/benefits Informed Consent: understands Reason for contiued inpatient stay Substantial Risk for: rapid decompensation
[2020-01-18 18:00] VITALS: BP 127/73; PULSE 88; TEMP 36.9
[2020-01-18] MEDS: hydrOXYzine HCL 25 MG TABLET 100 MG PO (22:29)
[2020-01-18] MEDS: traZODone HCL 50 MG TABLET 200 MG PO (22:29)
[2020-01-18] MEDS: risperiDONE 1 MG TABLET 4 MG PO (22:29)
[2020-01-19 06:00] VITALS: BP 115/60; PULSE 91; RESP 16; TEMP 36.2; O2SAT 95
[2020-01-19] MEDS: Lithium Carbonate 300 MG CAPSULE 600 MG PO (08:36)
[2020-01-19] MEDS: Acetaminophen 325 MG TABLET 650 MG PO (08:36)
[2020-01-19] MEDS: Sertraline HCL 50 MG TABLET 100 MG PO (08:36)
[2020-01-19] MEDS: clonazePAM 1 MG TABLET PO (08:36)
[2020-01-19] MEDS: Nicotine 21 MG PATCH.TD24 TRANSDERMA (08:37)
[2020-01-19] MEDS: risperiDONE 0.5 MG TABLET PO ×2 (08:59→13:20)
--- NOTE | 2020-01-19 09:24 | PM.PSYDC ---
DS: Providers Provider Date of admission: 01/07/20 04:30 Primary care physician: Barb Fry NP DS: Diagnosis Discharge Diagnosis (1) Schizoaffective disorder: Status: Acute Discharge Plan Discharge Patient Disposition: Xfer Other Referrals: Carol Barrera (therapist) [Other] - 01/25/20 12:00 pm (Telehealth appointment) Jessica Luevano, RICHY [Nurse Practitioner] - 02/01/20 11:00 am (Telehealth appointment) Barb Fry NP [Primary Care Provider] - 01/28/20 9:00 am (IN [facility]) Discharge Medications: New clonazepam 1 mg Tablet 1 mg PO TID Qty: 90 RF: 0 lithium carbonate 300 mg Capsule 600 mg PO BID Qty: 120 RF: 0 hydroxyzine HCl 25 mg Tablet 100 mg PO BEDTIME Qty: 120 RF: 0 risperidone 0.5 mg Tablet 0.5 mg PO BID@0830,1430 Qty: 60 RF: 0 trazodone 100 mg tablet 200 mg PO BEDTIME Qty: 60 RF: 0 sertraline 100 mg tablet 100 mg PO DAILY Qty: 30 RF: 0 risperidone 4 mg tablet 4 mg PO BEDTIME Qty: 30 RF: 0 hydroxyzine pamoate 100 mg capsule 100 mg PO BEDTIME Qty: 30 RF: 0 Discontinued clonazepam [Klonopin] 0.5 mg tablet 0.5 mg PO BID Qty: 42 RF: 1 olanzapine 5 mg tablet 1 tab PO BEDTIME RF: 0 sertraline 50 mg tablet 1 tab PO DAILY RF: 0 trazodone 100 mg tablet 1 tab PO BEDTIME PRN (Reason: insomnia) RF: 0 Discharge Orders: Discharge Order (Routine); Ordered 01/19/20 Ordered By: Gaye Avalos Diet: advance to your usual diet Activity on Discharge: As tolerated Stand Alone Forms: Community Support Discharge Date/Time: 01/19/20 13:37 Visit Report Forms: Patient Portal Discharge page Care Plan Goals: Reduce psychosis Health Concerns: Agitation Pychosis Suicidal thinking Plan of Treatment: Stay on meidcations Follow up with your providers Mental Status Exam Mental Status Exam Patient Appearance: Well Grooomed Patient Orientation: Person, Place, Time and Situation Level of Consciousness: Awake and Appropriate Patient Behavior: Appropriate and Good Eye Contact Mood Description: Calm Affect Description: Calm Patient Cognition Impaired: No Ability to Follow Directions: Good Speech Pattern: Clear, Spontaneous Speech and Soft-Spoken Memory Description: Intact Hallucinations: None Delusions: Not Present Thought Process: Intact Thought Content: positive for Intact, negative for Suicidal Ideation and negative for Homicidal Ideation Depressive Symptoms: Increased Anxiety Judgement: Fair Data Data Completed and Pending Completed studies during hospitalization [Text1]: 01/13/20 01/13/20 01/13/20 08:12 08:12 08:17 Estimat Average Glucose 105 Hemoglobin A1c % 5.3 Triglycerides 140 Cholesterol 193 LDL Cholesterol, Calc 121 HDL Cholesterol 44 Lipoprotein (a) Cancelled Urine Total Volume Ur Epinephrine 24 Hr U Norepinephrine 24 Hr U Free Metanephrine U Normetanephrine 24h U Tot Metanephrine 24h Ur Dopamine 24 Hr U Tot Catecholamine 24h Urine Creatinine [place] 01/16/20 01/17/20 01/17/20 10:23 08:00 08:00 Estimat Average Glucose Hemoglobin A1c % Triglycerides Cholesterol LDL Cholesterol, Calc HDL Cholesterol Lipoprotein (a) Urine Total Volume Pending Pending Ur Epinephrine 24 Hr Pending U Norepinephrine 24 Hr Pending U Free Metanephrine Pending U Normetanephrine 24h Pending U Tot Metanephrine 24h Pending Ur Dopamine 24 Hr Pending U Tot Catecholamine 24h Pending Urine Creatinine Pending [place] 0.64 01/18/20 07:42 Estimat Average Glucose Hemoglobin A1c % Triglycerides Cholesterol LDL Cholesterol, Calc HDL Cholesterol Lipoprotein (a) Urine Total Volume Ur Epinephrine 24 Hr U Norepinephrine 24 Hr U Free Metanephrine U Normetanephrine 24h U Tot Metanephrine 24h Ur Dopamine 24 Hr U Tot Catecholamine 24h Urine Creatinine [place] 0.75 DS: Summary Hospital Course Hospital Course: Patient is a 44 year old male who was referred by [facility] crisis due to an increase in depression and psychosis. He has been in treatment with Jessica Luevano for several months, and has been on a combination of zyprexa and sertraline. Zyprexa has been helping with the depression but the patient has been increasingly depressed. Stresses include that he does not see his son who is in the mother's custody, and he has an ongoing conflict with his neighbors that seems to be rooted in psychosis and paranoia. The patient has been sleeping very little, has racing thoughts and has been quite withdrawn. Upon arrival to the unit he stated he felt safe but was anxious that he would be forced to have ECT and he does not want that. Past Psychiatric History: Inpatient admissions: 1 documented admission for over a month with ECT treatment here at [facility] in 2010. He denies any other psychiatric admissions. He feels ECT was harmful to him. Outpatient providers: Outpatient therapist at [facility] in [place]. Currently seeing them weekly Medication trials: Per documentation in [facility], in 2010 at time of discharge from, he was on Depakote, Abilify, Klonopin, Benadryl, trazodone, and Paxil. He also had a trial of seroquel with his PCP but he did not find it helpful. Hospital Course: Dave was admitted on a CV. He was placed on 15 minute checks. He was started on risperdal and [place]. He tolerated these changes without difficulty. Li was adjusted to a therapeutic level. His level of anxiety and depression, as well as his paranoia diminished. He was able to get some sleep on a combination of trazodone and vistaril. He was not able to return to live with his mother. Various jail options were reviewed. He did not want to go to [facility] because of the need to taper off klonopin. He elected to go to the jail in [place]. He was future oriented and looking toward getting a job. Status at Discharge Functional status at discharge: independent ambulation Overall status at discharge: patient is progressing back to baseline Time Spent with Patient Time attestation: Total time spent providing and/or coordinating discharge services:
[2020-01-22 05:47] LABS: Metanephrine, Free 24U 286 mcg/24 h (58-203); Normetanephrine, Free 24U 904 mcg/24 h (88-649); Total Metanephrine, Free 24U 1190 mcg/24 h (182-739); Total Volume 24U 1900 mL
[2020-01-22 20:36] LABS: CATF, 24 Ur Volume 1900 mL; CATF-24Ur Creatinine 2.31 g/24 h (0.50-2.15); Catecholamines,Tot. (E+NE) 24U 108 mcg/24 h (26-121); Dopamine, 24 Ur 363 mcg/24 h (52-480); Norepinephrine, 24 Ur 108 mcg/24 h (15-100)
== END 2020-01-19 13:37 | disposition other institution (70) | DRG 885 ==
LOC: HO.ED 01-07 02:37 → HO.PM5 01-07 04:48
PROVIDERS: Physician Assistant; Physician Assistant Medical; Admitting Provider Psychiatry & Neurology Psychiatry; Emergency Provider Internal Medicine; PCP Hospitalist; Visit Provider Psychiatry & Neurology Psychiatry
DX: F25.0 Schizoaffective disorder, bipolar type (principal); I10 Essential (primary) hypertension; Z20.828 Contact with and (suspected) exposure to other viral communicable diseases; Z79.899 Other long term (current) drug therapy
CPT/HCPCS: 36415; 80053; 80061; 80076; 80178; 80307; 80320; 82248; 82384; 83036; 83695; 83835; 85025; 87635; 99232; 99285

== ENCOUNTER 2020-03-23 13:00 | Outpatient (RCR) | payer MEDICARE, MEDICAID, SELFPAY ==
--- NOTE | 2019-12-22 15:02 | P.PNPSP_ITS ---
Subjective Subjective Date of Service: 12/22/19 Reason For Visit: Follow up Interim History: Pt presents for follow up Reporting sleep is improving with increase of Zyprexa to 7.5mg QHS--falling asleep between 10-12 and waking at 7-7:30am Reports anxiety and depressive sx are essentially the same . Reports occasional episodes of what sounds like panic, states they are occurring 1-3 times per month. Medication Compliance: Yes Side effects from medications: No Review of Systems Constitutional: Reports difficulty sleeping (improving) Psychiatric: Reports anxiety, Reports depression, Reports difficulty concentrating, Reports panic attacks, Denies homicidal ideation and Denies suicidal ideation Mental Status Exam Mental Status Exam Level of Consciousness: Awake and Appropriate Patient Behavior: Appropriate Mood Description: Blunted Affect Description: Blunted Speech Pattern: Clear Delusions: Paranoid Ideation Thought Process: Rumination and Goal Oriented Thought Content: positive for Goal Oriented and positive for Perseveration Depressive Symptoms: Increased Anxiety, Difficulty Sleeping and Difficulty Concentrating Judgement: Fair Assessment & Plan Assessment & Plan (1) Schizoaffective disorder: Status: Acute Code(s): F25.9 - Schizoaffective disorder, unspecified Assessment and Plan: * Klonopin to stay the same, encouraged to take evening dose earlier if necessary to address occasional panic sx * Zoloft increase to 75mg QD * No change to Zyprexa or Trazodone * Will follow up with therapist Greater than 50% of the session was spent on counseling and/or coordination of care Discharge Plan Discharge Attending provider: Jessica Luevano Medications: No Action clonazepam [Klonopin] 0.5 mg tablet 0.5 mg PO BID Qty: 42 RF: 1 olanzapine [Zyprexa] 5 mg tablet 7.5 mg PO BEDTIME 30 Days Qty: 45 RF: 0 sertraline 50 mg tablet 75 mg PO DAILY 30 Days Qty: 45 RF: 0 trazodone 100 mg tablet 100 mg PO BEDTIME PRN (Reason: sleep) Qty: 30 RF: 0
--- NOTE | 2020-01-05 13:40 | P.PNPSP_ITS ---
Subjective Subjective Date of Service: 01/05/20 Reason For Visit: Follow up Interim History: Pt presents for follow up via telephone call. Pt reporting he is not sleeping very much and is having a lot of difficulty with concentration due to racing thoughts--all of the time. He reports that he is ready to be admitted to the hospital, but wants to wait and make sure his mother is okay (she had shoulder surgery earlier this morning). Denies suicidal ideation. Medication Compliance: Yes Side effects from medications: No Review of Systems Constitutional: Reports difficulty sleeping Psychiatric: Reports abnormal sleep pattern, Reports anxiety, Reports dep ression, Reports difficulty concentrating, Reports paranoia, Reports hallucinations, Denies homicidal ideation and Denies suicidal ideation Mental Status Exam Mental Status Exam Mood Description: Anxious Affect Description: Anxious Speech Pattern: Clear Delusions: Paranoid Ideation Thought Process: Racing, Rumination and Slowed Thinking Thought Content: positive for Preoccupation Depressive Symptoms: Increased Anxiety, Insomnia, Diff. Making Decisions and Difficulty Sleeping Judgement: Fair Assessment & Plan Assessment & Plan (1) Schizoaffective disorder: Status: Acute Code(s): F25.9 - Schizoaffective disorder, unspecified Assessment and Plan: Pt to present to ED for crisis evaluation and psychiatric admission Greater than 50% of the session was spent on counseling and/or coordination of care Discharge Plan Discharge Attending provider: Jessica Luevano Medications: No Action clonazepam [Klonopin] 0.5 mg tablet 0.5 mg PO BID Qty: 42 RF: 1 olanzapine [Zyprexa] 5 mg tablet 7.5 mg PO BEDTIME 30 Days Qty: 45 RF: 0 sertraline 50 mg tablet 75 mg PO DAILY 30 Days Qty: 45 RF: 0 trazodone 100 mg tablet 100 mg PO BEDTIME PRN (Reason: sleep) Qty: 30 RF: 0
--- NOTE | 2020-02-02 14:19 | P.PNPSO_ITS ---
Subjective Subjective Date of Service: 02/01/20 Reason For Visit: Follow up Interim History: Chart reviewed. Patient recently discharged from [facility] psychiatric admission. Medication changes during admission include: D/C Zyprexa Started Risperdal 40mg QHS and 0.5mg BID Increased Zoloft to 100mg QD Increased klonopin to 1mg TID Started [place] at 600mg BID Trazodone 200mg QHS During call patient sounded very slowed and flat. He reported that his therapist observed the same thing. He states that he feels a bit groggy and is lacking motivation to do things. He reports that his anxiety is much improved, and he is sleeping about 4 hours per night. Medication Compliance: Yes Side effects from medications: Yes (as reported in H&P) Review of Systems Review of Systems Yes all other systems are reviewed and are negative Mental Status Exam Mental Status Exam Level of Consciousness: Awake Patient Behavior: Sedated Mood Description: Flat Affect Description: Flat Speech Pattern: Clear, Monotone and Delayed Delusions: Paranoid Ideation Thought Content: positive for [place] Depressive Symptoms: Loss of Energy Judgement: Fair Discharge Plan Discharge Attending provider: Jessica Luevano Medications: No Action clonazepam 1 mg Tablet 1 mg PO TID Qty: 90 RF: 0 lithium carbonate 300 mg Capsule 600 mg PO BID Qty: 120 RF: 0 hydroxyzine HCl 25 mg Tablet 100 mg PO BEDTIME Qty: 120 RF: 0 risperidone 0.5 mg Tablet 0.5 mg PO BID@0830,1430 Qty: 60 RF: 0 trazodone 100 mg tablet 200 mg PO BEDTIME Qty: 60 RF: 0 sertraline 100 mg tablet 100 mg PO DAILY Qty: 30 RF: 0 risperidone 4 mg tablet 4 mg PO BEDTIME Qty: 30 RF: 0 hydroxyzine pamoate 100 mg capsule 100 mg PO BEDTIME Qty: 30 RF: 0 glycopyrrolate 1 mg tablet 3 mg PO Q8H PRNRF: 0 Assessment & Plan Assessment & Plan (1) Schizoaffective disorder: Qualifiers: Schizoaffective disorder type: bipolar Qualified Code(s): F25.0 - Schizoaffective disorder, bipolar type Status: Acute Code(s): F25.9 - Schizoaffective disorder, unspecified Assessment and Plan: * asked patient to hold AM dose of risperdal to see if this improves side effects * no other changes * f/u 2 weeks Greater than 50% of the session was spent on counseling and/or coordination of care
== END 2020-05-08 23:55 | disposition home or self-care (01) ==
LOC: HO.PAOS 13:00
PROVIDERS: Visit Provider Nurse Practitioner Psychiatric/Mental Health
DX: F25.0 Schizoaffective disorder, bipolar type (principal); Z79.899 Other long term (current) drug therapy

== ENCOUNTER 2020-03-29 13:38 | Outpatient (REF) | payer OTHER, SELFPAY ==
[2020-03-29 15:05] LABS: Lithium 0.65 mmol/L (0.60-1.20)
== END 2020-03-29 13:39 | disposition home or self-care (01) ==
LOC: HO.LAB 13:38
PROVIDERS: PCP Hospitalist; Visit Provider Nurse Practitioner Psychiatric/Mental Health
DX: Z79.899 Other long term (current) drug therapy (principal)
CPT/HCPCS: 36415; 80178

== ENCOUNTER 2020-04-08 16:19 | Outpatient (REF) | payer OTHER, SELFPAY | END 2020-04-08 16:20 | disposition home or self-care (01) | LOC: HO.LAB 16:19 | PROVIDERS: PCP Hospitalist; Visit Provider Surgery | DX: L02.91 Cutaneous abscess, unspecified (principal) | CPT/HCPCS: 10060; 87071; 87205; 99202 ==

== ENCOUNTER → 2020-04-15 10:27 | Outpatient (BNVA) | payer OTHER, SELFPAY | PROVIDERS: PCP Hospitalist; Visit Provider Surgery | DX: L02.212 Cutaneous abscess of back [any part, except buttock and flank] (principal); I10 Essential (primary) hypertension | CPT/HCPCS: 99212 ==